=== PATIENT | female | born 1940 | race Caucasian/White ===

== ENCOUNTER 2017-04-10 13:20 | Outpatient (CLI) | payer MEDICARE, OTHER ==
--- NOTE | 2017-04-10 17:00 | MRI ---
MRI CERVICAL SPINE WITHOUT IV CONTRAST: 04/10/17 HISTORY: Cervical radiculopathy. Patient complains of left shoulder and arm pain with numbness and tingling i n the left arm down to the fingers. Symptoms have been present for six months. COMPARISON: Not available. FINDINGS: There is volume loss involving each visualized cerebellar hemisphere. Multilevel degenerative changes are seen in the cervical spine. There is partial fusion of the C4-5 vertebral bodies with fusion of the C5-6 as well as T1-2 vertebral bodies. C2-3 level: There is no disc bulge or disc herniation. Central spinal canal and neural foramina are patent. C3-4 level: There is mild loss of intervertebral disc height. There is a broad based disc osteophyte complex with prominent facet hypertrophic changes greater on the left. The findings result in moder ate to severe bilateral neural foraminal narrowing as well as moderate narrowing of the central spin al canal. C4-5 level: As mentioned above, there is partial fusion at this level, but there is posterior osteop hyte formation including probably uncinate process hypertrophy on the right. There is severe bilater al neural foraminal narrowing with mild narrowing of the central spinal canal. C5-6 level: There is posterior osteophyte formation which results in mild generalized narrowing of t he central spinal canal. There is narrowing of the ventral subarachnoid space with flattening of the anterior aspect of the spinal cord, but there is normal signal intensity in the spinal cord. Right neural foramen is patent, but there is mild uncinate process hypertrophy on the left resulting in mo derate left sided neural foraminal narrowing. C6-7 level: There are prominent end plate degenerative changes at this level. There is loss of inter vertebral disc height. There is a broad disc osteophyte complex with facet degenerative changes. The re is moderate narrowing of the central spinal canal as well as moderate bilateral neural foraminal narrowing. C7-T1 level: There is severe loss of intervertebral disc height. There is severe loss of interverteb ral disc height. There is mild broad based disc osteophyte complex which results in only slight effa cement of the ventral aspect of the thecal sac. There is moderate bilateral neural foraminal narrow ing, greater on the left. T1-2 level: There is posterior osteophyte formation at this level resulting in slight narrowing of t he ventral subarachnoid space as well as mild to moderate bilateral neural foraminal narrowing. T2-3 level: There is loss of intervertebral disc height. There is a mild broad based disc osteophyte complex with slightly larger central disc protrusion. This narrows the ventral subarachnoid space. There is mild to moderate right and moderate left sided neural foraminal narrowing. T3-4 level: There is mild broad based disc bulge. This narrows the ventral subarachnoid space. Neura l foramina are patent. IMPRESSION: 1. Multilevel degenerative changes in the cervical spine with levels of fusion involving the C4 -5, C5-6, and T1-2 levels. 2. Moderate to severe narrowing of the central spinal canal at the C3-4 level as well as modera te right and severe left sided neural foraminal narrowing related to posterior osteophyte formation and broad based disc bulge and facet hypertrophic changes. Additional levels of neural foraminal and central canal stenosis are also present as described above. POS: [facility]
== END 2017-04-10 13:21 | disposition home or self-care (01) ==
LOC: SCSMRI 13:20
PROVIDERS: ATTEND Neurological Surgery
DX: M47.23 Other spondylosis with radiculopathy, cervicothoracic region (principal); M48.02 Spinal stenosis, cervical region; M50.10 Cervical disc disorder with radiculopathy, unspecified cervical region
CPT/HCPCS: 72141

== ENCOUNTER → 2017-06-14 | Day surgery (SDC) | payer MEDICARE, OTHER ==
[2017-06-13 15:31] VITALS: BMI 31.3
[~2017-06-14] MED LIST: Acetaminophen/Codeine 30-300mg Tablet ONE; CEFAZOLIN/Water 2 GM/20 ML SYRINGE ONE; Dexamethasone 20 MG/5 ML VIAL ONE; Fentanyl 100 MCG/2 ML VIAL ONE; Fentanyl 250 MCG/5 ML VIAL ONE; Glycopyrrolate 0.2 MG/ML 5 ML SYRINGE ONE; Lidocaine 1% PF 5 ML VIAL ONE; Midazolam HCl 2 mg/2 ml Vial ONE; Naloxone HCl 0.4 mg/ml Vial ONE; Ondansetron HCl/PF 4 MG/2 ML Vial ONE; Promethazine HCl 25 MG/ML VIAL SLOW IVP PRN; Propofol 200 MG/20 ML VIAL ONE; Thrombin 5000 UNITS/5 ML VIAL ONE; ePHEDrine/0.9% NaCl/PF SYRINGE 50 mg/10 ml ONE
--- NOTE | 2017-06-14 08:58 | HP ---
HISTORY OF PRESENT ILLNESS: Ms. Vieyra is a very pleasant 77-year-old woman who presents for evalua tion of a severe left-sided C6 radiculopathy. She has had this now for at least 6-8 months now. Her pain is profound and has had no relief due to this left shoulder. She has had significant arthropat hy in the left side and had a reverse shoulder replacement. She has also had intraarticular injectio ns into the shoulder and none of it has given her any significant relief. She saw a neurologist rece jerson who performed an EMG, that felt like it was radiculopathy from her neck and a followup MRI that shows significant stenosis to the left at C5-6 matching her symptoms as well. PHYSICAL EXAMINATION: The patient is alert and oriented x3. She is in a wheelchair secondary to oth er disabling conditions. Her gait is unassessed. 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 She is mildly tender over the distribution of th e C6 nerve and has a positive Spurling's maneuver to the left. PAST MEDICAL HISTORY: Dementia, osteoarthritis, bronchitis, hyperlipidemia, chronic renal disease st age 3, hypothyroidism, chronic constipation, Crohn's disease, Charcot joint, atrial fibrillation, hea rt failure, open angle glaucoma, hypertension, history of CVA and peripheral vascular disease. CURRENT MEDICATIONS: Unlisted. ALLERGIES: ARICEPT, BACTRIM, CIPRO, MORPHINE and SULFA DRUGS. ASSESSMENT: Cervical radiculopathy. PLAN: Dr. Mcconnell met with the patient, reviewed imaging and ultimately advocated for C5-6 ACDF. He e xplained to the patient the risks, benefits, and alternatives to the procedure. The patient expresse d understanding and would like to move forward with surgery as discussed. I do believe the patient i s mentally competent and capable of making medical decisions for herself and we will move forward wit h surgery as planned.
[2017-06-14 11:03] LABS: #Basophils 0.1 thou/uL (0.0-0.2); #Eosinphils 0.5 thou/uL (0.0-0.7); #Lymphocytes 1.3 thou/uL (1.20-3.40); #Monocytes 0.8 thou/uL (0.11-0.59); #Neutrophils 5.6 thou/uL (1.40-6.50); %Basophils 0.7 % (0.0-1.0); %Eosinophils 5.6 % (0.0-10.0); %Lymphocytes 15.6 % (21.0-51.0); %Monocytes 9.8 % (0.0-10.0); Hematocrit 42.7 % (36.0-47.0); Mean Platelet Volume 9.6 fL (7.4-10.4); Red Blood Cell (RBC) Count 4.54 mill/uL (4.20-5.40); White Blood Cell (WBC) Count 8.2 thou/uL (4.8-10.8)
[2017-06-14 12:16] LABS: Anion Gap 13 mmol/L (10-20); BUN (Urea Nitrogen) 24 mg/dL (9.8-20.1); Calc. Creatinine Clearance 57 mL/min (70-130); Carbon Dioxide 25 mmol/L (23-31); Chloride 107 mmol/L (98-107); Estimated GFR-MDRD 53
--- NOTE | 2017-06-14 13:27 | OP ---
DATE OF PROCEDURE: 06/14/2017 SURGEON: Jose L Mcconnell M.D. MYSTERY SHOPPER: Zia Phelps PA-C INDICATION: Pain. DIAGNOSIS: Cervical radiculopathy. PROCEDURE: Anterior cervical discectomy and fusion at C6-7. ANESTHESIA: General. TECHNIQUE: The patient was brought into the operating room and placed under general anesthesia. She was placed on the table in supine position. A transverse incision was planned over the lateral aspe ct of the neck on the right. After prepping and draping and after appropriate operative pause, the i ncision was created. The underlying platysma muscle was identified and incised. A blunt tissue plan e anterior to the sternocleidomastoid muscle was used to gain access to the prevertebral space. Self -retaining retractors placed in the wound for optimal exposure. After confirming the appropriate lev el, an annulotomy was performed in the disk space and all disk material as well as anterior and poste rior osteophytes were removed. After complete decompression, a 6 mm lordotic PEEK cage packed with a llograft and autograft material was placed within the interbody space. An anterior cervical plate wa s then fashioned in front of the spine and secured with a total of 4 fixed screws. Midline and later al structures were inspected and found to be free from significant trauma. The wound was irrigated. Hemostasis was maintained throughout. The wound was then closed in anatomic layers and a pressure d ressing was applied. There were no known procedural complications.
--- NOTE | 2017-06-14 15:54 | EKG ---
Test Reason : PREOP Blood Pressure : / mmHG Vent. Rate : 078 BPM Atrial Rate : 064 BPM P-R Int : 000 ms QRS Dur : 086 ms QT Int : 400 ms P-R-T Axes : 000 -23 -08 degrees QTc Int : 456 ms Atrial fibrillation Anterior infarct , age undetermined cannot be excluded Abnormal ECG Confirmed by ITZ DUMONT ([id number]) on 06/14/2017 3:54:15 PM Referred By: CHANG Confirmed By:ITZ DUMONT
== END ==
LOC: SDC 09:38
PROVIDERS: ATTEND Neurological Surgery
PROC: 0RG10A0 Fusion of Cervical Vertebral Joint with Interbody Fusion Device, Anterior Approach, Anterior Column, Open Approach (ICD-10-PCS; principal; 2017-06-14)
PROC: 0RT30ZZ Resection of Cervical Vertebral Disc, Open Approach (ICD-10-PCS; 2017-06-14)
DX: M54.12 Radiculopathy, cervical region (principal); M19.90 Unspecified osteoarthritis, unspecified site; I50.9 Heart failure, unspecified; N18.3 Chronic kidney disease, stage 3 (moderate); I13.0 Hypertensive heart and chronic kidney disease with heart failure and stage 1 through stage 4 chronic kidney disease, or unspecified chronic kidney disease; F03.90 Unspecified dementia, unspecified severity, without behavioral disturbance, psychotic disturbance, mood disturbance, and anxiety; E78.5 Hyperlipidemia, unspecified; E03.9 Hypothyroidism, unspecified; K50.90 Crohn's disease, unspecified, without complications; K59.09 Other constipation; A52.16 Charcot's arthropathy (tabetic); I48.91 Unspecified atrial fibrillation; Z88.2 Allergy status to sulfonamides; Z88.5 Allergy status to narcotic agent; Z88.8 Allergy status to other drugs, medicaments and biological substances; Z86.73 Personal history of transient ischemic attack (TIA), and cerebral infarction without residual deficits; Z90.710 Acquired absence of both cervix and uterus; Z98.890 Other specified postprocedural states; Z99.3 Dependence on wheelchair; Z88.1 Allergy status to other antibiotic agents; Z79.899 Other long term (current) drug therapy
CPT/HCPCS: 20930; 20936; 22551; 22853; 76001; 80048; 85025; 93005; 96374; C1713; 36415; 93010; J1100; J2001; J2250; J2310; J2405; J2704; J3010

== ENCOUNTER 2018-03-21 08:34 | Outpatient (CLI) | payer MEDICARE ==
--- NOTE | 2018-03-21 12:06 | MRI ---
MRI CERVICAL SPINE PERFORMED WITH AND WITHOUT CONTRAST ENHANCEMENT: HISTORY: Cervical radiculopathy. Left shoulder and arm pain, numbness, and tingling, extending down left arm, to fingers. COMPARISON: A noncontrast MRI performed on 04/10/2017. FINDINGS: The patient has undergone an anterior cervical fusion at the C6-C7 level. There is a rudimentary di sk at C4-C5 and fusion at the C5-C6 level. A narrowed disk is seen at C7-T1, and bony fusion at the T1 and T2 levels. Motion artifact does degrade detail on this examination. Cord signal change is fe lt to be normal. C2-C3: Unremarkable. C3-C4: Disk and posterior osteophyte changes at this level are associated with a moderate degree of canal stenosis and bilateral foraminal narrowing. C4-C5: There is a partial fusion again noted at this level. The canal shows a mild degree of canal stenosis. There is fairly pronounced bilateral foraminal narrowing. C5-C6: Posterior osteophyte changes are seen at this level. There is mild narrowing to the left for amen. C6-C7: No central canal stenosis. There is mild foraminal narrowing, slightly greater on the left. C7-T1: No definite canal or foraminal stenosis. T1-T2: Unremarkable, other than a bony fusion. IMPRESSION: Areas of canal and foraminal stenosis, as discussed above. The most significant degree of canal sten osis appears to be at the C3-C4 level. POS: [facility]
[2018-03-21] MEDS ORDERED: Gadobenate Dimeglumine 529 MG/1 ML (20ML VIAL) ONE (14:56)
== END 2018-03-21 08:35 | disposition home or self-care (01) ==
LOC: TBSIIMAG 08:34
PROVIDERS: ATTEND Neurological Surgery
DX: M54.12 Radiculopathy, cervical region (principal); M48.02 Spinal stenosis, cervical region; M99.81 Other biomechanical lesions of cervical region
CPT/HCPCS: 72156; 82565; A9579

== ENCOUNTER 2018-06-23 14:04 | Inpatient (IN) | payer MEDICARE ==
[2018-06-23] MEDS ORDERED: Ondansetron ODT 8 MG TAB ONE (14:53)
[2018-06-23] MEDS ORDERED: Ondansetron PF 4 MG/2 ML Vial ONE (14:56)
[2018-06-23 15:14] LABS: #Eosinphils 0.1 thou/uL (0.0-0.7); #Lymphocytes 1.6 thou/uL (1.20-3.40); #Monocytes 1.1 thou/uL (0.11-0.59); #Neutrophils 6.7 thou/uL (1.40-6.50); %Basophils 0.1 % (0.0-1.0); %Eosinophils 0.9 % (0.0-10.0); %Lymphocytes 16.6 % (21.0-51.0); %Monocytes 11.4 % (0.0-10.0); %Neutrophils 71.1 % (42.0-75.0); Mean Corpuscular HGB CONC 32.4 g/dL (32.0-36.0); Mean Corpuscular Hemoglobin 30.3 pg (27.0-31.0); Mean Corpuscular Volume 93.5 fL (78.0-98.0); Mean Platelet Volume 8.7 fL (7.4-10.4); Platelet Count 214 thou/uL (130-400); RBC Distribution Width 13.4 % (11.5-14.5); Red Blood Cell (RBC) Count 4.97 mill/uL (4.20-5.40); White Blood Cell (WBC) Count 9.4 thou/uL (4.8-10.8)
[2018-06-23 15:29] LABS: ALT (SGPT) 10 U/L (8-55); AST (SGOT) 17 U/L (5-34); Albumin 3.6 g/dL (3.4-4.8); Alkaline Phosphatase 85 U/L (40-150); Anion Gap 17 mmol/L (10-20); BUN (Urea Nitrogen) 39 mg/dL (9.8-20.1); Bilirubin, Total 0.4 mg/dL (0.2-1.2); CK (CPK) 66 U/L (29-168); Calc. Creatinine Clearance 0 mL/min (70-130); Calcium 9.6 mg/dL (7.8-10.44); Carbon Dioxide 19 mmol/L (23-31); Chloride 108 mmol/L (98-107); Estimated GFR-MDRD 26; Globulin 3.7 g/dL (2.4-3.5); Glucose 101 mg/dL (83-110); Lipase 28 U/L (8-78); Potassium 3.2 mmol/L (3.5-5.1); Protein, Total 7.3 g/dL (6.0-8.3); Sodium 141 mmol/L (136-145)
[2018-06-23 15:33] LABS: CKMB 0.8 ng/mL (0-6.6)
[2018-06-23 16:21] LABS: Bilirubin Negative (Negative); Blood, Urine Large (Negative); Clarity TURBID (Clear); Glucose, Urine (Dipstick) Negative (Negative); Leukocyte Large (Negative); Nitrite Negative (Negative); Protein, Urine (Dipstick) 100 mg/dL (Neg-Trace); Specific Gravity, Urine 1.016 (1.002-1.036); Urobilinogen 0.2 mg/dL (0.2-1.0); pH, Urine 6.5 (5.0-9.0)
[2018-06-23 16:27] LABS: Bacteria/HPF 4+ HPF (None Seen); Hyaline Casts/LPF 4-6 HYALINE CAST LPF (0-3 Hyaline); Pathc Cast-AUWi Flag 1.61 (0-2.49); RBC/HPF GREATER THAN 50-TNTC HPF (0-3); Squamous Epithelial None Seen HPF (0-3)
--- NOTE | 2018-06-23 16:55 | CT ---
ABDOMEN CT WITHOUT CONTRAST PELVIC CT WITHOUT CONTRAST: History: Abdominal pain. Comparison: 12-01-15 Technique: Abdomen and pelvic CTs were performed without IV or oral contrast. Coronal reformatted efrem ges are submitted for interpretation. FINDINGS: Patchy interstitial and ground glass opacities involving the visualized lung bases. The heart is enla rged. No significant pericardial fluid. The descending thoracic aorta and abdominal aorta demonstrate atherosclerosis. No aneurysmal dilatation. Absent gallbladder. Limited evaluation of the solid organs due to lack of IV contrast. Grossly no solid organ abnormality . No gastrohepatic, retrocrural or periportal lymphadenopathy. There are nonobstructing punctate calcifications in the right kidney. There is a hypodensity in the r ight renal cortex measuring 1.7 cm with an attenuation coefficient of 21 Hounsfield units. The lesion is indeterminate. There is no evidence of right sided obstructive uropathy. There is a large Staghor n calculus involving the left intrarenal collecting system. There does appear to be dilatation of the upper pole intrarenal collecting system. The left ureter is moderately dilated. No evidence of obstr ucting calcifications. Limited evaluation of the mesentery due to motion and beam attenuation artifact. No mesenteric mass, lymphadenopathy, free air or free fluid. Small umbilical hernia containing mesenteric fat. Limited evaluation of the alimentary canal by the lack of oral contrast. There are mildly prominent proximal small bowel loops. The mid to distal small bowel loops are decomp ressed. A partial obstructive process cannot be entirely excluded. Anastomosis of the small bowel and colon is unremarkable. There does appear to be a right hemicolectomy. No evidence of colonic obstruc tion. CT PELVIS: Nonspecific air in the urinary bladder. Correlate for recent Atkins catheterization. If there is no hi story of recent catheterization, the possibility of infection cannot be excluded. Correlate with urin alysis. No pelvic mass, free air or free fluid. The uterus is surgically absent. There is diffuse bony demineralization. Extensive fusion changes of the lumbar spine. No definite fra cture. There is perihardware lucency involving the right screw at S1. IMPRESSION: 1. Large Staghorn calculus involving the left intrarenal collecting system with moderate dilatation o f the left upper pole. There is dilatation of the left ureter without associated obstructing calculus . 2. Air attenuation of the urinary bladder as described above. Correlate clinically. 3. Partial obstructive process cannot be excluded. 4. Results of study discussed with Dr. Craig 06-23-18 at 5:20 p.m. POS: [facility]
[2018-06-23] MEDS ORDERED: [UNRECOGNIZED DRUG - OTHER] IVPB PRN (18:15)
[2018-06-23 18:49] LABS: Actual Bicarbonate (HCO3a) 17.1 mEq/L (22-28); Analyzer IN Cardio ER; Base Excess (BEa) -8.9 mEq/L (-2.0 to +3.0); Calcium, Ionized 1.18 mmol/L (1.12-1.30); Carboxyhemoglobin (COHb) 0.7 gm% (0.0-3.0); Hemoglobin (Hb) 13.2 g/dL (12.0-16.0); O2 Tension (PaO2) 112.4 mmHg (> 70.0); Potassium - ABG Lab 3.22 mmol/L (3.70-5.30); pH, Arterial 7.28 (7.35-7.45)
[2018-06-23 18:50] LABS: Puncture Site RRA
[2018-06-23] MEDS: Sodium Chloride 0.9% 1,000 ML IV SCH (19:49)
[2018-06-23] MEDS ORDERED: Potassium Chloride 20 MEQ TAB PO SCH (20:15)
--- NOTE | 2018-06-23 20:33 | RAD ---
CHEST ONE VIEW: Comparison: 09-10-16 History: Shortness of breath. FINDINGS: Re-demonstration of dorsal column stimulator as well as additional wires projecting over the lower le ft hemithorax. Fusion hardware in the cervical and lumbar spine is noted. Heart is enlarged with pulmonary vascular prominence. No consolidation or mass. No pneumothorax. No a cute osseous abnormalities. IMPRESSION: Cardiomegaly without evidence of congestive heart failure. POS: [facility]
[2018-06-23] MEDS ORDERED: Meropenem 1 GM in Sodium Chloride 0.9% 100 ML IVPB SCH (21:00)
[2018-06-23] MEDS ORDERED: Famotidine/PF 20 mg/2ml Vial SLOW IVP SCH ×2 (21:00)
--- NOTE | 2018-06-23 21:22 | HP ---
CHIEF COMPLAINT: Nausea, vomiting, and diarrhea. HISTORY OF PRESENT ILLNESS: The patient is a very pleasant 78-year-old female, who resides in apparently an assisted living versus independent living, who presents to the hospital with hypotension. Based on the ER physician, I was notified that the patient was found to be hypotensive and was brought into the ER for further evaluation. Furthermore, when I spoke with the patient, she stated that she has been having nausea, vomiting, and diarrhea, which has been going on for the past 4 days. When I asked her that she notify anybody, she stated that she did not since she is able to wheel herself to the bathroom. She really did not tell anybody about the nausea, vomiting, or the diarrhea. Denies any recent antibiotic take. She denies any abdominal pain. She denies any fevers. PAST MEDICAL HISTORY: 1. She has a history of Crohn disease. 2. She has a history of atrial fibrillation. 3. She has a history of glaucoma. 4. She has a history of heart failure. 5. She has a history of coronary artery disease. 6. She has a history of reflux. PAST SURGICAL HISTORY: The patient stated that she has had a left shoulder and also had a hysterectomy and a cholecystectomy. ALLERGIES: SHE HAS GOT ALLERGY TO DONEPEZIL. SHE IS ALLERGIC TO MORPHINE, SULFA AND BACTRIM. MEDICATIONS: 1. She takes allopurinol 100 mg daily. 2. She takes Lasix 20 mg daily. 3. Norvasc 10 mg daily. 4. Lopressor 50 mg b.i.d. 5. Lyrica 100 mg daily. 6. She takes Tylenol No.3, 300 mg daily. 7. She takes Arginaid 4.5 g daily. REVIEW OF SYSTEMS: All negative except for the ones mentioned above in the HPI. FAMILY HISTORY: No history of any heart disease or stroke. SOCIAL HISTORY: She currently resides in [facility]. Denies any alcohol use or drug use. She stated that she is a [id number]. This is per the patient. PHYSICAL EXAMINATION: VITAL SIGNS: As of the following; her temperature of 98.6, heart rate of 100, and respirations 18. She was 99% on 2 L and blood pressure was 100/70. GENERAL: She is awake; however, appears to be mildly drowsy, easily arousable. CV: S1 and S2 present. No murmurs, rubs, or gallops. LUNGS: Clear to auscultation. No rhonchi or wheezes noted. ABDOMEN: Soft. Bowel sounds present x2. Mild pain upon palpation to bilateral right and left lower quadrant. EXTREMITIES: No edema. She does have significant mild erythema noted to her left foot compared to her right foot. Her left foot in comparison to her right foot also appears to be cool to touch and she does have small areas of unhealed wounds on her left toes. NEUROLOGIC: No focal deficits noted. She is able to move all extremities. SKIN: Again as I mentioned, she does have some decubitus per nursing staff, and she has 2 small healing ulcers noted to her toes. LABORATORY RESULTS: As of the following, her urine, she has a large leukocyte esterase, no squamous epithelial cells, and large wbc's. Chemistry; sodium of 141, potassium of 3.2, BUN of 39, and creatinine of 1.85. Her bicarb was 19. Her BNP is 156.6. Hematology; WBCs of 9.4, hemoglobin of 15.0, hematocrit of 46.5, and platelets of 214. She did have a CT of abdomen and pelvis without any contrast, which indicated partial small bowel obstruction. Also indicated a large staghorn calculus involving the left intrarenal collection system. There is no dilation of the left ureter without associated obstruction. ASSESSMENT AND PLAN: The patient is a very pleasant 78-year-old female, who presents to the hospital with complaints with hypotension. 1. Sepsis. I will start her on some broad-spectrum antibiotics given the fact that her microbiology in the past has indicated Proteus and E. coli. I will start her on some meropenem for now. Also, we will start her on some gentle IV hydration. She did get some IV hydration. We will continue that. 2. Urinary tract infection. Again, the antibiotics will cover and also Urology consult has been put in by the ER doctor for the staghorn calculi. 3. Non-anion gap metabolic acidosis. We will continue to monitor. 4. Acute kidney injury. Her baseline creatinine is 1.02 and today is 1.85. We will start her on some IV hydration. Continue to monitor. Most likely this is prerenal. 5. Hypokalemia. We will replace the potassium. 6. Deep venous thrombosis prophylaxis. We will put the patient on some sequential compression devices and also subcu Lovenox. Job ID: [id number]
[2018-06-23 21:31] LABS: Anion Gap 12 mmol/L (10-20); BUN (Urea Nitrogen) 35 mg/dL (9.8-20.1); Calc. Creatinine Clearance 39 mL/min (70-130); Calcium 8.5 mg/dL (7.8-10.44); Carbon Dioxide 19 mmol/L (23-31); Chloride 115 mmol/L (98-107); Estimated GFR-MDRD 35; Glucose 89 mg/dL (83-110); Magnesium 1.3 mg/dL (1.6-2.6); Phosphorus 3.2 mg/dL (2.3-4.7); Potassium 3.1 mmol/L (3.5-5.1); Sodium 143 mmol/L (136-145)
[2018-06-23] MEDS: Polyethylene Glycol OPTH DROP 15 ML BOT EA EYE SCH (21:44)
[2018-06-23] MEDS: MEROPENEM 1 GM/50 ML 1 GM in Premix Bag 1 BAG IVPB SCH (21:47)
[2018-06-24] MEDS: Acetaminophen 325 MG TAB PO PRN ×3 (00:53→17:05)
[2018-06-24] MEDS: Sodium Chloride 0.9% 1,000 ML IV SCH (06:24)
[2018-06-24 07:00] LABS: #Eosinphils 0.2 thou/uL (0.0-0.7); #Monocytes 0.7 thou/uL (0.11-0.59); #Neutrophils 4.1 thou/uL (1.40-6.50); %Basophils 0.3 % (0.0-1.0); %Eosinophils 3.5 % (0.0-10.0); %Lymphocytes 16.8 % (21.0-51.0); %Monocytes 12.1 % (0.0-10.0); %Neutrophils 67.3 % (42.0-75.0); Hemoglobin 12.1 g/dL (12.0-16.0); Mean Corpuscular HGB CONC 33.1 g/dL (32.0-36.0); Mean Corpuscular Hemoglobin 30.7 pg (27.0-31.0); Mean Corpuscular Volume 92.7 fL (78.0-98.0); Mean Platelet Volume 8.8 fL (7.4-10.4); Platelet Count 166 thou/uL (130-400); RBC Distribution Width 13.5 % (11.5-14.5); Red Blood Cell (RBC) Count 3.92 mill/uL (4.20-5.40); White Blood Cell (WBC) Count 6.1 thou/uL (4.8-10.8)
[2018-06-24 07:17] LABS: ALT (SGPT) 7 U/L (8-55); AST (SGOT) 15 U/L (5-34); Albumin 2.9 g/dL (3.4-4.8); Alkaline Phosphatase 64 U/L (40-150); Anion Gap 13 mmol/L (10-20); BUN (Urea Nitrogen) 29 mg/dL (9.8-20.1); Bilirubin, Total 0.3 mg/dL (0.2-1.2); Calc. Creatinine Clearance 48 mL/min (70-130); Calcium 8.4 mg/dL (7.8-10.44); Carbon Dioxide 16 mmol/L (23-31); Chloride 118 mmol/L (98-107); Estimated GFR-MDRD 43; Globulin 2.7 g/dL (2.4-3.5); Glucose 77 mg/dL (83-110); Potassium 3.5 mmol/L (3.5-5.1); Protein, Total 5.6 g/dL (6.0-8.3); Sodium 143 mmol/L (136-145)
[2018-06-24] MEDS: Enoxaparin Sodium 40 MG/0.4 ML SYRINGE SC SCH ×2 (08:51→08:52)
[2018-06-24] MEDS: Lactinex Tablet PO SCH (08:51)
[2018-06-24] MEDS: Polyethylene Glycol OPTH DROP 15 ML BOT EA EYE SCH ×2 (08:52→21:10)
[2018-06-24] MEDS: MEROPENEM 1 GM/50 ML 1 GM in Premix Bag 1 BAG IVPB SCH ×2 (08:52→21:09)
[2018-06-24] MEDS ORDERED: Lactated Ringer's 1,000 ML IV SCH (10:15)
[2018-06-24] MEDS ORDERED: Metoprolol Tartrate 25 MG TAB PO SCH (12:15)
[2018-06-24 12:58] LABS: INR-International Normal Ratio 1.4; Prothrombin Time 17.4 SEC (12.0-14.7)
[2018-06-24 12:59] LABS: PTT 36.9 SEC (22.9-36.1)
--- NOTE | 2018-06-24 15:03 | CON ---
DATE OF CONSULTATION: 06/24/2018 PRIMARY CARE DOCTOR: Dr. Do. HISTORY OF PRESENT ILLNESS: Ms. Vieyra is a pleasant 78-year-old female, followed by Dr. Do, who presented to Urology Clinic and was seen by Dr. Kee on January 2017 for history of gross hematuria, UTI. She subsequently no showed and has been disengaged from our clinic due to noncompliance to follow up. She is currently admitted, resides in [facility], states that she is immobile and wheelchair bound due to chronic back pain, as well as her decreased mobility due to chronic pain in her feet. She is on allopurinol, however, denies history of gout. However, she is a poor historian. She denies prior history of kidney stones, prior surgical intervention for recurrent kidney stones. She herself today denies recurrent UTI of concern. She does now complain of lower back pain, however, was admitted due to hypotension. Currently, with gentle IV fluids, her acute kidney injury, renal insufficiency has improved. She has no significant abdominal pain of concern. She was admitted for hypotension and history of nausea and diarrhea. Her stool cultures are negative. A CT without contrast was obtained by the emergency room demonstrating incidental left staghorn with punctate right renal lithiasis. Her presenting white count is 9.4, currently it is 6.1. With IV fluid hydration , her creatinine has improved from 1.8 to 1.2. Her baseline creatinine is variable from 1.7 to 0.8. She appears to be stable. Currently is on meropenem, which I agree with based on her previous urine culture. PAST MEDICAL HISTORY: Includes Crohn disease, history of atrial fibrillation, glaucoma, history of heart failure, coronary artery disease, reflux, Cardiology per patient is Dr. Griffith, questionable history of gout. PAST SURGICAL HISTORY: Laparotomy secondary to bowel adhesions per patient, left shoulder surgery, hysterectomy, cholecystectomy. ALLERGIES: DONEPEZIL, MORPHINE, SULFA, AND BACTRIM. CURRENT MEDICATIONS: Include allopurinol 100 mg one p.o. daily, Tylenol, vitamin D, Lovenox subcu DVT prophylaxis, melatonin, meropenem on admission, metoprolol 25 mg, pentoxifylline, pregabalin. REVIEW OF SYSTEMS: A 10-point review of systems as above, otherwise noncontributory. SOCIAL HISTORY: She is a resident of [facility]. She is a retired teacher nursery school. PHYSICAL EXAMINATION: VITAL SIGNS: Stable. She is afebrile 97.6, 89, 92, 118/79. She is voiding in her diapers. Denies sensation of incomplete void. GENERAL: The patient appears to be in no acute distress. HEENT: Unremarkable. HEART: Regular rate. LUNGS: Clear. ABDOMEN: Soft, obese. No rigidity. No rebound. Midline laparotomy incision with no hernia. : Atrophic vaginitis. No evidence of pelvic mass on bimanual exam. EXTREMITIES: No cyanosis, clubbing, or edema. However, she does have some lower extremity chronic weakness. There is some eschar of her large toe on the left. PERTINENT LABORATORY DATA: White count 6, hemoglobin 12, platelet 166. There is no significant shift of concern. Renal function, on admission creatinine was 1.8, currently 1.2. Baseline creatinine 1.7 to 0.8. Lactic acid is within normal limits. There is no uric acid result of record. UA demonstrates pH of 6.5, 100 protein, negative nitrites, large leukocytes, greater than 50 rbc's, greater than 50 wbc's, 4+ bacteria, no epithelial, this is a catheterized specimen. Culture demonstrates preliminary gram-negative rods. Stool cultures on this admission is negative. Prior urine culture from January of 2017 demonstrates E. coli pansensitive, Proteus demonstrating resistant to quinolones, however, sensitive to meropenem and Zosyn. CT with contrast November 2015. Hypodensity in the kidney measuring 1.98 cm, likely representing cyst. No gross evidence of renal calculi on CT of November of 2015. Stone protocol CT 06/23/2018: Nonobstructing punctate right renal calculi, right hypodense cyst 1.7 cm, Hounsfield unit 21, indeterminate. No evidence of right hydronephrosis. Per my review, near complete staghorn as it involves multiple calices, dilation of the upper pole, no evidence of obstructing ureteral calculi. Air in the bladder from recent catheterization. Mildly prominent proximal small bowel loops, cannot rule out partially obstructive process. IMPRESSION AND PLAN: Ms. Vieyra is a 78-year-old female with past medical history of: 1. Questionable gout. 2. History of intermittent hematuria with urinary tract infection, previously seen by Dr. Kee. 3. History of atrial fibrillation, congestive heart failure, followed by Dr. Griffith. 4. Current admission due to acute kidney injury, exacerbated by nausea, diarrhea. 5. Incidental left staghorn with upper pole hydronephrosis. 6. History of urinary tract infection. Current culture gram-negative nina. Previous culture as above consistent with staghorn. The patient currently is hemodynamically stable. I have reviewed with the patient regarding indications for percutaneous nephrostomy tube. I did discuss the case with Interventional Radiology, who would perform the nephrostomy tube tomorrow to the upper pole if possible, and antegrade nephroureteral stent for PCNL at a later date. Pending final culture and sensitivity, I would recommend Infectious Disease consultation as she will most likely require a PICC line. Stage PCNL will be performed at a later date in few weeks when the patient has improved in her strength and her deconditioned status. 7. l obtain uric acid level. Continue allopurinol. 8. Agree with meropenem for now. Await final culture repeat. Hold Lovenox for percutaneous nephrostomy tube tomorrow. DVT prophylaxis with bilateral Arelis Hdez. Job ID: [id number] [facility]
[2018-06-24 15:16] LABS: Anion Gap 15 mmol/L (10-20); BUN (Urea Nitrogen) 24 mg/dL (9.8-20.1); Calc. Creatinine Clearance 54 mL/min (70-130); Calcium 9.3 mg/dL (7.8-10.44); Carbon Dioxide 17 mmol/L (23-31); Chloride 117 mmol/L (98-107); Estimated GFR-MDRD 50; Glucose 71 mg/dL (83-110); Potassium 3.6 mmol/L (3.5-5.1); Sodium 145 mmol/L (136-145)
--- NOTE | 2018-06-24 15:27 | CON ---
DATE OF CONSULTATION: 06/24/2018 TYPE OF CONSULTATION: Surgical. CONSULTING PHYSICIAN: Divya Barton MD REASON FOR CONSULTATION: Possible small bowel obstruction. HISTORY OF PRESENT ILLNESS: The patient is a 78-year-old white female. She lives in a fdc in [place]. She presented to the hospital yesterday secondary to a recent history of nausea and vomiting. She underwent evaluation in the emergency room including a CT scan. The CT scan was felt to potentially be consistent with an early partial small bowel obstruction with some mild dilatation of small bowel loops. She was also recognized to have a large staghorn calculus of her left kidney. As the patient had been vomiting prior to her presentation, I was consulted for the possibility of a bowel obstruction. She does have a history of multiple operations. Laboratory evaluation at the time of her presentation revealed a normal white blood cell count of 9.4 with a normal differential and hemoglobin of 15.0. Her laboratory studies from today are essentially the same. Her chemistry profile revealed some electrolyte abnormalities. Her BUN and creatinine were slightly elevated and her magnesium level is low. Her liver function tests today are essentially normal, although her albumin level is a little bit low at 2.9. Her carbon dioxide level was low at 19 and is 16 today. Her urinalysis shows a large amount of leukocyte esterase with greater than 50 white blood cells and red blood cells. Her urine was turbid in color consistent with urinary tract infection. Finally, the patient today tells me that although she has not had a nasogastric tube that she has not vomited and she denies any abdominal pain. She has had at least two bowel movements today. She tells me she has never stopped having regular bowel function and/or diarrhea. PAST MEDICAL HISTORY: 1. Possible history of Crohn disease. 2. History of atrial fibrillation. 3. Hypertension. 4. Hyperlipidemia. 5. History of multiple urinary tract infections. PAST SURGICAL HISTORY: 1. Left shoulder surgery. 2. Hysterectomy. 3. Cholecystectomy. 4. Surgery, possibly an exploratory laparotomy, for a ruptured bowel. 5. History of gastrostomy tube in left upper abdomen. MEDICATIONS: Include; 1. Allopurinol. 2. Lasix. 3. Norvasc. 4. Lopressor. 5. Lyrica. 6. Tylenol No. 3 (for pain throughout her body.). ALLERGIES: DONEPEZIL, MORPHINE, AND SULFA. PERSONAL AND SOCIAL HISTORY: She is . She has 1 child. She lives in a fdc in [place]. Her primary care physician is Dr. Do. She smoked, but not for 40 years. She formally drink alcohol, but she cannot for a number of years. REVIEW OF SYSTEMS: She is unable to walk, but she can only transfer. FAMILY HISTORY: Noncontributory. PHYSICAL EXAMINATION: VITAL SIGNS: Temperature is 97.6, pulse 113, and blood pressure 118/79. GENERAL: She is a well-developed, well-nourished, pleasant, elderly white female, resting in bed. She is alert and oriented x3, and cooperative. HEAD, EYES, EARS, NOSE, AND THROAT: Unremarkable. NECK: Supple without mass or tenderness. LUNGS: Clear to auscultation. CARDIAC: Regular rate and rhythm. ABDOMEN: Soft. Bowel sounds are present and normoactive. There is no evidence of tympanitic bowel sounds. ASSESSMENT AND PLAN: The patient with no evidence of a small bowel obstruction. She has some mild bowel delicious dilatation that can occur for any number of reasons. Given that she has been having regular bowel movements, there is certainly no indication of obstructive phenomena. I would certainly recommend resuming her diet, initially with clear liquids and then advance it. I am not certain why she has been vomiting, but it certainly could be related to her urinary tract infection or any number of reasons. Should she develop further GI problems, I would be happy to see her, otherwise I will sign off. Job ID: [id number]
--- NOTE | 2018-06-24 20:32 | PDOC.PN ---
- Subjective Encounter Start Date: 06/24/18 Encounter Start Time: 10:00 Subjective: pt up in bed no complains - Objective Resuscitation Status - Order Detail: 06/23/18 18:15 Resuscitation Status Routine Resuscitation Status: DNAR: NO Resuscitation Discussed with: per pt Vital Signs & Weight: Vital Signs (12 hours) Temp Pulse Resp BP Pulse Ox 06/24/18 16:00 98.7 F 95 18 110/63 97 06/24/18 11:31 97.7 F 97 18 102/67 100 Weight Admit Weight 173 lb 6.4 oz Weight 173 lb 6.4 oz I&O: 06/23/18 06/24/18 06/25/18 06:59 06:59 06:59 Intake Total 950 560 Output Total 3 Balance 950 557 Result Diagrams: 06/24/18 06:33 06/24/18 14:49 Phys Exam - Physical Examination Neck: no nodes, no JVD, supple, full ROM Respiratory: no wheezing, no rales, no rhonchi, wheezing present, clear to auscultation bilateral Cardiovascular: RRR, no significant murmur, no rub, gallop, irregular Gastrointestinal: soft, non-tender, no distention, positive bowel sounds Dx/Plan (1) Sepsis Code(s): A41.9 - SEPSIS, UNSPECIFIED ORGANISM Status: Acute (2) UTI (urinary tract infection) Status: Acute (3) Small bowel obstruction Code(s): K56.609 - UNSP INTESTNL OBST, UNSP TO PARTIAL VERSUS COMPLETE OBST Status: Acute (4) Intractable nausea and vomiting Code(s): R11.2 - NAUSEA WITH VOMITING, UNSPECIFIED Status: Acute (5) Staghorn kidney stones Code(s): N20.0 - CALCULUS OF KIDNEY Status: Acute - Plan will conitnue broad spectrum abx -: ct scan indicated SBO pt is having diarrhea now -: urology consulted for staghorn stones -: stool studies ordered * . Review of Systems - Review of Systems Respiratory: negative: Cough, Dry, Shortness of Breath, Hemoptysis, SOB with Excertion, Pleuritic Pain, Sputum, Wheezing Cardiovascular: negative: chest pain, palpitations, orthopnea, paroxysmal nocturnal dyspnea, edema, light headedness, other Gastrointestinal: negative: Nausea, Vomiting, Abdominal Pain, Diarrhea, Constipation, Melena, Hematochezia, Other - Medications/Allergies Allergies/Adverse Reactions: Allergies Allergy/AdvReac Type Severity Reaction Status Date / Time donepezil HCl [From Aricept] Allergy Verified 06/13/17 15:30 morphine Allergy Verified 06/13/17 15:30 Sulfa (Sulfonamide Allergy Verified 06/13/17 15:30 Antibiotics) sulfamethoxazole Allergy Verified 06/13/17 15:30 [From Bactrim] trimethoprim [From Bactrim] Allergy Verified 06/13/17 15:30 Medications: Current Medications Acetaminophen (Tylenol) 650 mg PO Q4H PRN PRN Reason: Headache/Fever/Mild Pain (1-3) Last Admin: 06/24/18 17:05 Dose: 650 mg Acidophilus (Floranex) 1 tab PO DAILY [facility] Last Admin: 06/24/18 08:51 Dose: 1 tab Allopurinol (Zyloprim) 100 mg PO DAILY [facility] Atorvastatin Calcium (Lipitor) 10 mg PO HS [facility] Cholecalciferol (Vitamin D3) 4,000 units PO DAILY [facility] Famotidine (Pepcid) 20 mg PO DAILY [facility] Fentanyl (Sublimaze) 25 mcg SLOW IVP Q6HR PRN PRN Reason: Pain Meropenem 1 gm/ Device 50 mls @ 100 mls/hr IVPB Q12HR [facility] Last Admin: 06/24/18 08:52 Dose: 50 mls Lactated Ringer's (Lactated Ringer's) 1,000 mls @ 30 mls/hr IV .Q24H [facility] Melatonin (Melatonin) 9 mg PO HS [facility] Metoprolol Tartrate (Lopressor) 25 mg PO BID [facility] Miscellaneous Medication (Pharmacy To Dose) 1 each IVPB PRN PRN PRN Reason: Pharmacy to dose Ondansetron HCl (Zofran) 4 mg IVP Q6H PRN PRN Reason: Nausea/Vomiting Pentoxifylline (Trental) 400 mg PO TID [facility] Last Admin: 06/24/18 17:03 Dose: 400 mg Pregabalin (Lyrica) 100 mg PO BID [facility] Propylene Glycol (Systane Opth Drop 15ml Bot) 1 drop EA EYE BID [facility] Last Admin: 06/24/18 08:52 Dose: Not Given Sodium Chloride (Flush - Normal Saline) 10 ml IVF Q12HR [facility] Last Admin: 06/24/18 08:52 Dose: Not Given Sodium Chloride (Flush - Normal Saline) 10 ml IVF PRN PRN PRN Reason: Saline Flush Tizanidine HCl (Zanaflex) 2 mg PO TID PRN PRN Reason: Muscle Spasm Last Admin: 06/24/18 17:02 Dose: 2 mg
[2018-06-24] MEDS ORDERED: tiZANidine HCl 4 MG TAB PO PRN (21:00)
[2018-06-24] MEDS: Pregabalin 50 MG CAP PO SCH (21:10)
[2018-06-24] MEDS: Metoprolol Tartrate 25 MG TAB PO SCH (21:10)
[2018-06-24] MEDS: Atorvastatin Calcium 10 MG TAB PO SCH (21:11)
[2018-06-24] MEDS: Melatonin 3 MG TAB PO SCH (21:11)
[2018-06-25] MEDS: Lactated Ringer's 1,000 ML IV SCH ×2 (01:44→23:28)
[2018-06-25] MEDS: Metoprolol Tartrate 25 MG TAB PO SCH ×2 (05:32→20:41)
[2018-06-25 08:17] LABS: Anion Gap 12 mmol/L (10-20); BUN (Urea Nitrogen) 16 mg/dL (9.8-20.1); Calc. Creatinine Clearance 65 mL/min (70-130); Calcium 9.2 mg/dL (7.8-10.44); Carbon Dioxide 20 mmol/L (23-31); Chloride 114 mmol/L (98-107); Estimated GFR-MDRD 61; Glucose 78 mg/dL (83-110); Potassium 3.1 mmol/L (3.5-5.1); Sodium 143 mmol/L (136-145)
[2018-06-25] MEDS ORDERED: Midazolam HCl 2 mg/2 ml Vial ONE (09:02)
[2018-06-25] MEDS ORDERED: Fentanyl 100 MCG/2 ML VIAL ONE (09:03)
[2018-06-25] MEDS: Allopurinol 100 MG TAB PO SCH (09:13)
[2018-06-25] MEDS: Lactinex Tablet PO SCH (09:13)
[2018-06-25] MEDS: Famotidine 20 MG TAB PO SCH (09:13)
[2018-06-25] MEDS: Pregabalin 50 MG CAP PO SCH ×2 (09:14→20:42)
[2018-06-25] MEDS: Potassium Chloride 10 MEQ/100 ML PREMIX BAG IVPB SCH ×3 (09:15→12:11)
[2018-06-25] MEDS: Polyethylene Glycol OPTH DROP 15 ML BOT EA EYE SCH ×2 (09:15→20:46)
[2018-06-25] MEDS ORDERED: Sodium Chloride 0.9% 20 ML ONE (10:12)
--- NOTE | 2018-06-25 11:06 | PDOC.PN ---
- Subjective Encounter Start Date: 06/25/18 Encounter Start Time: 11:04 Patient seen and examined, states she's feeling better albeit not fully back to normal, no other issues or complaints. - Objective Resuscitation Status - Order Detail: 06/23/18 18:15 Resuscitation Status Routine Resuscitation Status: DNAR: NO Resuscitation Discussed with: per pt Vital Signs & Weight: Vital Signs (12 hours) Temp Pulse Resp BP Pulse Ox 06/25/18 07:42 98.2 F 90 18 124/76 99 Weight Admit Weight 173 lb 6.4 oz Weight 173 lb 6.4 oz I&O: 06/24/18 06/25/18 06/26/18 06:59 06:59 06:59 Intake Total 950 1010 Output Total 5 Balance 950 1005 Result Diagrams: 06/24/18 06:33 06/25/18 07:38 Phys Exam - Physical Examination Constitutional: NAD HEENT: PERRLA, moist MMs, sclera anicteric Neck: no nodes, no JVD, supple +coughing no respiratory distress Cardiovascular: no significant murmur, no rub, irregular Gastrointestinal: soft, non-tender, no distention Musculoskeletal: pulses present, edema present (trace) Dx/Plan (1) Sepsis Code(s): A41.9 - SEPSIS, UNSPECIFIED ORGANISM Status: Acute (2) UTI (urinary tract infection) Status: Acute (3) Gastroenteritis Code(s): K52.9 - NONINFECTIVE GASTROENTERITIS AND COLITIS, UNSPECIFIED Status : Acute (4) Afib Code(s): I48.91 - UNSPECIFIED ATRIAL FIBRILLATION Status: Chronic (5) HTN (hypertension) Code(s): I10 - ESSENTIAL (PRIMARY) HYPERTENSION Status: Chronic (6) PVD (peripheral vascular disease) Code(s): I73.9 - PERIPHERAL VASCULAR DISEASE, UNSPECIFIED Status: Chronic - Plan * cont current plan of care * if WBC continues to improve and patient's clinical condition improving, will plan for discharge in AM * case and plan d/w patient at length, she understood and agreed with this plan.
[2018-06-25] MEDS: Potassium Chloride 10 MEQ in Premix Bag 1 BAG IVPB SCH ×3 (12:34→15:00)
--- NOTE | 2018-06-25 13:32 | PRG ---
DATE OF SERVICE: 06/25/2018 SUBJECTIVE: The patient just back from Interventional Radiology, underwent left percutaneous nephroureteral tube placement. OBJECTIVE: VITAL SIGNS: Vital signs are stable. ABDOMEN: Soft, nontender, nondistended. Nephrostomy catheter is adequately secured, taped. I did replace the Atkins catheter for strict I's and O's and monitoring for possible hematuria component. Catheter placed without difficulty with clear jak cloudy urine. IMPRESSION AND PLAN: Ms. Vieyra is a 78-year-old female with past medical history; 1. Gout, coronary artery disease, atrial fibrillation, glaucoma, currently admitted with history of hypotension. Vital signs currently stable. 2. History of Proteus, escherichia coli urinary tract infection. Recent urine culture, escherichia coli pansenitive. CT demonstrating left staghorn calculus. Renal function improved with gentle hydration. Her creatinine today is 0.89. Admitting creatinine was 1.4. Her white count is stable. I did review the images with Dr. Escalante as he has concern regarding suboptimal placement of the nephroureteral stent. It is in the upper pole; however, in the infundibulum, which is suboptimal for percutaneous nephrolithotomy for treatment of the stone. Dr. Escalante agrees and is willing to provide a mid pole access likely on to allow the patient a day of rest. informed the patient the current access is not safe to proceed with percutaneous nephrolithotomy as itching versus infundibulum ; calyceal access is preferable. Although, she declined, she states that she will think about it. I did encourage the patient to consider replacement of nephrostomy tube in a safer approach to treat her staghorn calculus. It is my hope that she will allow us to do this on this admission . meropenem has been switched to Levaquin. I will place the patient back on meropenem until Infectious Disease has seen the patient. Her previous urine culture did demonstrate Proteus component. It is likely that she has polymicrobial urinary tract infection given history of staghorn calculi. If patient agrees, she will go down for a percutaneous nephroureteral stent in the mid pole approach as upper pole could not be placed on . She may resume her diet today. Job ID: [id number] [facility]
[2018-06-25] MEDS ORDERED: Meropenem 2 GM in Sodium Chloride 0.9% 100 ML IVPB SCH (14:00)
[2018-06-25] MEDS ORDERED: Meropenem 2 GM in Admixture Fee 1 EACH IVPB SCH (14:00)
--- NOTE | 2018-06-25 14:19 | SPC ---
LEFT ANTEGRADE PYELOGRAM LEFT NEPHROURETERAL CATHETER PLACEMENT: DATE: 06/25/2018. HISTORY: Staghorn left renal calculus with dilatation of the superior pole left renal collecting system. Plac ement of a left nephroureteral catheter via the superior pole collecting system was requested prior t o PCNL. TECHNIQUE: The procedure including risks and complications were explained to the patient and informed consent wa s obtained. The patient was placed on the angiography table in the prone position. Limited ultrasou nd of the left kidney was performed. An area just above the 12th rib was marked, and the area was me ticulously prepped and draped in the usual sterile fashion. The skin and subcutaneous tissues were i nfiltrated with buffered 1% Lidocaine for local anesthesia. Conscious sedation was performed with th e intravenous administration of Fentanyl and Versed. The collecting system was accessed utilizing a micropuncture needle. There was return of slightly cloudy urine. Contrast injection was performed w hich demonstrated filling of the dilated superior pole left renal collecting system. However, prior to placement of a wire, the patient's oxygen saturations were decreased likely related to positioning . As a result, the needle was removed, and the patient was placed on her hospital bed with improveme nt in oxygen saturation. The patient was briefly monitored for approximately 10-15 minutes, and the patient was then again placed in the prone position. The left flank was again meticulously prepped a nd draped in the usual sterile fashion. The skin and subcutaneous tissues were infiltrated with buffered 1% Lidocaine for local anesthesia at the intended puncture site. Utilizing concurrent real-time ultrasound guidance, the superior pole d ilated left renal collecting system was accessed. Contrast injection was performed. The needle was then exchanged over a 0.018 inch guidewire for a 5 Kyrgyz introducer sheath. Attempts at manipulatin g a glidewire distal to the staghorn calculus were unsuccessful. As a result, the introducer sheath w as exchanged over a 0.035 inch glidewire for a 5 [place]z Berenstein catheter. The Berenstein catheter and glidewire were manipulated into the ureter distal to the staghorn calculus within the renal pelv is. The Berenstein catheter was then exchanged over the glidewire for a straight flush catheter. Co ntrast injection confirms placement in the ureter. However, the final image was obtained, and althou gh initial puncture appeared to be within the dilated collecting system, the actual puncture site patsy eared to be more in the infundibulum. This finding was discussed with Dr. Key. The catheter was capped and placed to gravity drainage and sutured in place utilizing 2-0 Ethilon suture material . A dry sterile dressing was placed. The patient tolerated the procedure well and without immediate co mplication. The patient was transported to her hospital room in stable condition. The patient's vit al signs remained stable during the procedure well as post procedure. FINDINGS: Large staghorn left renal calculus with dilated superior pole left renal collecting system. A left n ephroureteral catheter was successfully placed with tip positioned in the distal ureter. Initial acc ess by ultrasound did appear to be within superior pole posterior renal calyx, but final image sugges ts that the puncture site may actually be in the region of the infundibulum. However, the catheter w as not removed at this time, and findings were discussed with Dr. Grier. A 2nd access will be obtained at level of a more inferior pole of left renal collecting system in a couple of days for mor e adequate access for a percutaneous nephrostolithotomy procedure. More superior access within the s uperior pole collecting system was unable to be performed due to overlying rib. IMPRESSION: Technically successful left nephroureteral catheter placement with a 5 Kyrgyz angiographic straight f lush catheter placed serving as a nephroureteral catheter. This will likely facilitate drainage of t he dilated superior pole collecting system at this time. A 2nd access site within a more inferior po le calyx will be performed in a couple of days. Findings were discussed with Dr. Grier. CODE CR POS: LISA
--- NOTE | 2018-06-25 14:43 | ULT ---
LIMITED ULTRASOUND LEFT KIDNEY FOR ACCESS: DATE: 06/25/2018. HISTORY: Patient with a staghorn left renal calculus with obstructed superior pole left renal collecting syste m. FINDINGS/IMPRESSION: Limited sonographic evaluation was performed demonstrating dilatation of the superior pole left renal calyx. Ultrasound guidance was utilized for access of the left renal collecting system. The remain paty of this study will be dictated as a separate report concerning placement of the left nephroureter al catheter, and please see that exam for further details. POS: HEATHER
[2018-06-25] MEDS: Benzonatate 100 MG CAP PO PRN (14:59)
[2018-06-25] MEDS ORDERED: Ketorolac Tromethamine 30 MG/ML VIAL IVP SCH (15:15)
--- NOTE | 2018-06-25 17:58 | CON ---
DATE OF CONSULTATION: 06/25/2018 REASON FOR CONSULTATION: Urosepsis with obstruction. HISTORY OF PRESENT ILLNESS: A 78-year-old, who has a history of Crohn disease previously in remission, brought in because of nausea, vomiting, and diarrhea. She did not have any dysuria, but she did have abdominal pain associated with the symptoms above. The symptoms have been present for about 4 days before admission. She lives by herself in an assisted living setting and on arrival, temperature was 98.6, heart rate 100, respiratory rate 18, O2 saturation 99%, and BP 100/70, little bit drowsy on arrival. The overall exam with pain in the right and left lower quadrants which was mild. There is some erythema in the left foot. The neuro examination is nonfocal. Initial lab data; white cell count 9.4, hemoglobin 15, platelets 214 with 71% neutrophils. INR 1.4. pH 7.28, pCO2 37, pO2 112. Creatinine was 1.85. Liver profile was normal. Albumin 3.6, lipase 28. Urinalysis with greater than 50 wbc's. Microbiology with very broadly sensitive E coli identified. She had a C diff stool toxin negative and Campylobacter assay was negative. The patient had an abdomen and pelvis CT scan performed on admission. This showed a large staghorn calculus involving the left intrarenal collecting system with moderate dilatation of the left ureter. The patient has been given meropenem. The organism has been fully identified and susceptibility tested as a broadly susceptible strain of E coli. PHYSICAL EXAMINATION: GENERAL: Currently, Ms. Vieyra is awake. She is oriented. Denies any headaches. No shortness of breath or chest pain. She has moderate pain in the abdominal area, somewhat diffuse. She is voiding in the diaper and has a peripheral IV access. HEENT: The ocular movements are conjugate. Oral cavity with still quite a few teeth in place. The mouth is quite dry. NECK: Supple. No jugular venous distention. LUNGS: Symmetric. Clear breath sounds. HEART: S1, S2. Regular rate without murmurs. No S3, S4. ABDOMEN: Diffusely tender, but not distended. Bowel sounds are diminished. Bladder is not distended. EXTREMITIES: She is able to move her extremities, but lower extremities have a lot of arthrosis, osteoarthrosis mostly. She has difficulty in mobilizing them because of pain mostly. NEUROLOGIC: She is alert and oriented. She knew she was in [facility] and could give me the date as well. FOLLOWUP LABS: White cell count 6.1, hemoglobin 12, and platelets 166. Sodium 143, creatinine 1.2, which is improved from admission. Liver profile normal. Albumin 2.9. ASSESSMENT: 1. Coronary artery disease. 2. History of Crohn disease in remission. 3. Hyperuricemia, on allopurinol. 4. Nausea, vomiting, diarrhea, and diffuse abdominal tenderness. 5. Staghorn calculus of the left kidney with obstruction. 6. Escherichia coli, positive urine cultures with a broad susceptibility profile and abnormal urinalysis. DISCUSSION: Differential diagnosis includes an invasive UTI with pyelonephritis. There has been improvement with antimicrobial therapy administration, which makes this the more likely scenario. Other possibilities would include reactivation of her Crohn disease, which had not been on treatment. Her hyperuricemia could be related to Crohn disease that could be also associated with uric acid stone formation. We will switch her to Rocephin. PICC line placement, and treat for protracted periods of time. The patient will need staged removal of the stone and Dr. Key is going to likely plan this procedure in the next few weeks. One could consider an oral quinolone, although, lately, the detention use of quinolones has been fraught with a number of warnings regarding heart, tendons, joints, and altered mental status , so I am stay away from quinolones for this patient in view of the duration of therapy required. Job ID: [id number] [facility]TD[facility]
[2018-06-25] MEDS: cefTRIAXone\\ROCEPHIN 2 GM in Sodium Chloride 0.9% 100 ML IVPB SCH (18:00)
[2018-06-25] MEDS: Atorvastatin Calcium 10 MG TAB PO SCH (20:40)
[2018-06-25] MEDS: Melatonin 3 MG TAB PO SCH (20:41)
[2018-06-26 07:05] LABS: #Basophils 0.1 thou/uL (0.0-0.2); #Eosinphils 0.1 thou/uL (0.0-0.7); #Lymphocytes 0.4 thou/uL (1.20-3.40); #Monocytes 0.9 thou/uL (0.11-0.59); %Basophils 1.1 % (0.0-1.0); %Eosinophils 0.5 % (0.0-10.0); %Lymphocytes 2.9 % (21.0-51.0); %Monocytes 6.4 % (0.0-10.0); %Neutrophils 89.1 % (42.0-75.0); Hemoglobin 13.5 g/dL (12.0-16.0); Mean Corpuscular HGB CONC 33.1 g/dL (32.0-36.0); Mean Corpuscular Hemoglobin 30.1 pg (27.0-31.0); Mean Corpuscular Volume 90.8 fL (78.0-98.0); Mean Platelet Volume 8.9 fL (7.4-10.4); Platelet Count 173 thou/uL (130-400); RBC Distribution Width 13.6 % (11.5-14.5); Red Blood Cell (RBC) Count 4.49 mill/uL (4.20-5.40); White Blood Cell (WBC) Count 13.4 thou/uL (4.8-10.8)
[2018-06-26 07:33] LABS: Anion Gap 11 mmol/L (10-20); BUN (Urea Nitrogen) 11 mg/dL (9.8-20.1); Calc. Creatinine Clearance 64 mL/min (70-130); Calcium 9.5 mg/dL (7.8-10.44); Carbon Dioxide 23 mmol/L (23-31); Chloride 114 mmol/L (98-107); Estimated GFR-MDRD 61; Glucose 143 mg/dL (83-110); Sodium 145 mmol/L (136-145)
--- NOTE | 2018-06-26 07:43 | PRG ---
DATE OF SERVICE: 06/26/2018 SUBJECTIVE: The patient is sleeping, arousable. Vital signs are stable, temperature 99.1, pulse 109, respiratory rate 16, oxygen saturation 97, blood pressure 120/77. I's and O's 250 of urine output, jak, concentrated with no gross evidence of hematuria. PERTINENT LABORATORY DATA: White count 13, hemoglobin stable at 13.5, and platelets 173. Creatinine 0.89 and sodium 143. Stool culture demonstrating positive for Cryptosporidium antigen. IMPRESSION AND PLAN: A 78-year-old female with history of, 1. Gout. 2. Coronary artery disease. 3. Atrial fibrillation. 4. Glaucoma. 5. History of Proteus Escherichia coli urinary tract infection in the remote past. Recent urine culture, Escherichia coli, pansensitive on Rocephin by Infectious Disease. 6. CT demonstrating left staghorn, renal function improved with hydration. 7. Stool culture with history of diarrhea demonstrating Cryptosporidium antigen, currently in isolation, Infectious Disease is following. I am not sure if Dr. Escobedo is aware of this matter. Recommend his input. She is on a regular diet today. Unfortunately, the left percutaneous nephroureteral tube is in a suboptimal position. She is scheduled for replacement of her left nephroureteral stent tomorrow by Interventional Radiology. No anticoagulation due to ongoing nephrostomy tube exchange, continue antibiotics per Infectious Disease. NPO after midnight. Job ID: [id number] MTDD
[2018-06-26] MEDS: Pregabalin 50 MG CAP PO SCH ×2 (08:27→20:49)
[2018-06-26] MEDS: Allopurinol 100 MG TAB PO SCH (08:27)
[2018-06-26] MEDS: Metoprolol Tartrate 25 MG TAB PO SCH ×2 (08:27→20:50)
[2018-06-26] MEDS: Lactinex Tablet PO SCH (08:27)
[2018-06-26] MEDS: Polyethylene Glycol OPTH DROP 15 ML BOT EA EYE SCH ×2 (08:28→20:51)
[2018-06-26] MEDS: Benzonatate 100 MG CAP PO PRN (08:36)
[2018-06-26] MEDS: Famotidine 20 MG TAB PO SCH (08:36)
[2018-06-26] MEDS: Ondansetron PF 4 MG/2 ML Vial IVP PRN ×2 (10:47→20:56)
--- NOTE | 2018-06-26 13:32 | PDOC.PN ---
- Subjective Encounter Start Date: 06/26/18 Encounter Start Time: 13:30 Patient seen and examined, no new issues or complaints - Objective Resuscitation Status - Order Detail: 06/25/18 16:53 Resuscitation Status Routine Resuscitation Status: FULL: Full Resuscitation Discussed with: Dr. Villalobos and pt's daughter Tierra Faye Vital Signs & Weight: Vital Signs (12 hours) Temp Pulse Resp BP Pulse Ox 06/26/18 11:17 99.0 F 99 22 H 111/69 94 L 06/26/18 08:25 92 06/26/18 08:19 94 L 06/26/18 07:56 100.2 F H 22 H 119/78 94 L Weight Admit Weight 173 lb 6.4 oz Weight 173 lb 6.4 oz I&O: 06/25/18 06/26/18 06/27/18 06:59 06:59 06:59 Intake Total 1010 1010 Output Total 5 1000 Balance 1005 10 Result Diagrams: 06/26/18 06:50 06/26/18 06:50 Phys Exam - Physical Examination Constitutional: NAD HEENT: PERRLA, moist MMs, sclera anicteric Neck: no nodes, no JVD, supple, full ROM Respiratory: no wheezing, no rales, no rhonchi Cardiovascular: RRR, no significant murmur, no rub Gastrointestinal: soft, non-tender, no distention, positive bowel sounds Musculoskeletal: pulses present, edema present (trace) Dx/Plan (1) Sepsis Code(s): A41.9 - SEPSIS, UNSPECIFIED ORGANISM Status: Acute (2) UTI (urinary tract infection) Status: Acute (3) Gastroenteritis Code(s): K52.9 - NONINFECTIVE GASTROENTERITIS AND COLITIS, UNSPECIFIED Status : Acute (4) Afib Code(s): I48.91 - UNSPECIFIED ATRIAL FIBRILLATION Status: Chronic (5) HTN (hypertension) Code(s): I10 - ESSENTIAL (PRIMARY) HYPERTENSION Status: Chronic (6) PVD (peripheral vascular disease) Code(s): I73.9 - PERIPHERAL VASCULAR DISEASE, UNSPECIFIED Status: Chronic - Plan * PICC placement, cont rocephin for 4 weeks * will await ID and urological clearance prior to discahrge * likely DC in 24-48hrs
--- NOTE | 2018-06-26 16:49 | PRG ---
DATE OF SERVICE: 06/26/2018 SUBJECTIVE: Not very active and not as responsive as she was yesterday. Seems to be grimacing and pointing to her left lateral lower chest wall area with pain. OBJECTIVE: VITAL SIGNS: The patient has a T-max of 100.2 on June 26. Blood pressure 130/70, pulse 105, respirations 20, and O2 saturation 92%. GENERAL: Grimacing during the exam from pain and tenderness left lateral anterior chest wall area around the rib cage. HEENT: Ocular movements conjugate. LUNGS: Symmetric air entry. No obvious crackles or wheezing. HEART: S1 and S2. Regular rate. Tenderness in the left lower anterior chest wall. ABDOMEN: Soft, not distended. Atkins catheter in place with small amount of bloody urine in the bag. LABORATORY DATA: White cell count of 13.4, hemoglobin 13.5, and platelets 173. Creatinine is down to 0.9. Sodium 145, and potassium 3.0. ASSESSMENT: Coronary artery disease; Crohn disease, in remission; hyperuricemia ; nausea, vomiting, diarrhea, and diffuse abdominal tenderness; staghorn calculus, left kidney with obstruction; Escherichia coli; positive urine cultures; abnormal urinalysis; and now pain in the left anterior costal area. The patient may have complication related to her hospital stay. In reference to her chest wall region, we will order a chest x-ray, portable study. Job ID: [id number] MTDD
[2018-06-26] MEDS: cefTRIAXone\\ROCEPHIN 2 GM in Sodium Chloride 0.9% 100 ML IVPB SCH (16:53)
--- NOTE | 2018-06-26 19:18 | RAD ---
PORTABLE UPRIGHT FRONTAL CHEST RADIOGRAPH 06/26/18 COMPARISON: 12/02/15 HISTORY: Chest pain. FINDINGS: Dorsal column stimulators overlie the mid thoracic spine. Fusion hardware overlies the imaged upper lumbar spine and the cervicothoracic junction. Postoperativ e anchors overlie the right humeral head and there is a left shoulder arthroplasty. There is pulmonary vascular congestion and perihilar interstitial prominence. Hazy increased density in the left base noted, similar when compared to the prior exam. Increased linear density in the righ t upper lobe seen laterally. IMPRESSION: 1. Increased interstitial density and pulmonary vascular congestion may signify mild interstitia l edema in the proper clinical setting. 2. Hazy increased density in the left base may signify infectious pneumonitis/aspiration or volu me loss. PA and lateral chest imaging suggested for further assessment. POS: HEATHER
--- NOTE | 2018-06-26 20:28 | PDOC.EVN ---
Event Note - Event Note Event Note: Called to see patient for elevated heart rate. Patient with Afib and intermittent RVR with fever during her hospitalization, but significantly elevated in 130s this evening. Patient has also had a progressive cough and her O2 sats have dropped mildly during her hospitalization. Dr. Escobedo ordered a CXR which show some possible mild edema/infiltrate. BNP was elevated on admit, but was given fluids due to sepsis and renal insufficiency that has resolved. Patient weak and with wet sounding cough on exam that has developed since admit. On Rocephin already. Will stop fluids, give dose of Cardizem, transfer to telemetry. Will need cardiology to see in the AM. Will expand antibiotics to cover Health Care Associated Pneumonia- Cefepime and Levaquin. If patient still sounds wet after control of HR with cardizen, she may benefit from a dose of Lasix as well.
[2018-06-26] MEDS: Atorvastatin Calcium 10 MG TAB PO SCH (20:50)
[2018-06-26] MEDS: Melatonin 3 MG TAB PO SCH (22:27)
[2018-06-26] MEDS: Cefepime 2 GM in Sodium Chloride 0.9% 100 ML IVPB SCH (23:10)
[2018-06-27] MEDS: Diltiazem HCl 125 MG, Admixture Fee 1 EACH in Sodium Chloride 0.9% 100 ML IVPB SCH ×2 (00:46→11:41)
[2018-06-27] MEDS ORDERED: Digoxin 0.5 MG/2 ML AMP SLOW IVP SCH (03:00)
[2018-06-27] MEDS: Acetaminophen 325 MG TAB PO PRN (03:25)
[2018-06-27 06:01] LABS: #Basophils 0.1 thou/uL (0.0-0.2); #Lymphocytes 0.4 thou/uL (1.20-3.40); #Monocytes 0.8 thou/uL (0.11-0.59); #Neutrophils 12.1 thou/uL (1.40-6.50); %Basophils 0.9 % (0.0-1.0); %Eosinophils 0.3 % (0.0-10.0); %Lymphocytes 2.8 % (21.0-51.0); %Monocytes 6.1 % (0.0-10.0); %Neutrophils 89.8 % (42.0-75.0); Hemoglobin 14.5 g/dL (12.0-16.0); Mean Corpuscular HGB CONC 33.6 g/dL (32.0-36.0); Mean Corpuscular Volume 92.1 fL (78.0-98.0); Mean Platelet Volume 9.6 fL (7.4-10.4); Platelet Count 160 thou/uL (130-400); RBC Distribution Width 13.9 % (11.5-14.5); Red Blood Cell (RBC) Count 4.67 mill/uL (4.20-5.40); White Blood Cell (WBC) Count 13.5 thou/uL (4.8-10.8)
[2018-06-27 06:17] LABS: Anion Gap 17 mmol/L (10-20); BUN (Urea Nitrogen) 12 mg/dL (9.8-20.1); Calc. Creatinine Clearance 59 mL/min (70-130); Calcium 9.8 mg/dL (7.8-10.44); Carbon Dioxide 23 mmol/L (23-31); Chloride 112 mmol/L (98-107); Estimated GFR-MDRD 56; Glucose 112 mg/dL (83-110); Sodium 149 mmol/L (136-145)
[2018-06-27 06:22] LABS: Potassium 2.8 mmol/L (3.5-5.1)
--- NOTE | 2018-06-27 08:24 | PRG ---
DATE OF SERVICE: 06/27/2018 SUBJECTIVE: The patient continues to have vigorous cough. OBJECTIVE: VITAL SIGNS: Stable. Temperature 97, heart rate in the 1 teens, respirations 21, 97% on room air. I's and O's, 1010 in, 1000 out. Sedimentous urine. ABDOMEN: Soft. No rigidity. No rebound. PERTINENT LABORATORY DATA: White count today is 13, hemoglobin 14, platelets 160. Creatinine today 0.9. X-RAY STUDIES: Chest x-ray ordered by Dr. Escobedo demonstrating no acute pathology of concern. IMPRESSION/PLAN: 1. Ms. Vieyra is a 78-year-old female with history of Escherichia coli urinary tract infection, remote history of Escherichia coli Proteus. 2. History of gout. 3. History of coronary artery disease. 4. History of atrial fibrillation. 5. Glaucoma. 6. CT on this admission demonstrating a left near complete partial staghorn. She had an upper pole infundibular access, which is suboptimal for PCNL at a later date. Her cough may be exacerbated by her tubing to close to the rib. I will discuss this with Dr. Escalante. She is scheduled for her nephroureteral stent exchange today as it is a suboptimal access. As she has been transitioned to telemetry, I will discuss with primary care if it is still clear for the patient to proceed with Interventional Radiology under sedation. Job ID: [id number] MTDD
[2018-06-27] MEDS: Potassium Chloride 20 MEQ in Premix Bag 1 BAG IVPB SCH ×2 (09:00→10:22)
[2018-06-27] MEDS: Allopurinol 100 MG TAB PO SCH (09:01)
[2018-06-27] MEDS: Famotidine 20 MG TAB PO SCH (09:02)
[2018-06-27] MEDS: Metoprolol Tartrate 25 MG TAB PO SCH ×2 (09:02→22:06)
[2018-06-27] MEDS: Lactinex Tablet PO SCH (09:02)
[2018-06-27] MEDS: Pregabalin 50 MG CAP PO SCH ×2 (09:02→22:05)
[2018-06-27] MEDS: Cefepime 2 GM in Sodium Chloride 0.9% 100 ML IVPB SCH ×2 (09:03→22:02)
[2018-06-27] MEDS: Polyethylene Glycol OPTH DROP 15 ML BOT EA EYE SCH ×2 (09:03→22:07)
[2018-06-27] MEDS ORDERED: Sodium Bicarbonate 2.5 MEQ/5 ML VIAL ONE (12:56)
--- NOTE | 2018-06-27 13:59 | PDOC.PN ---
- Subjective Encounter Start Date: 06/27/18 Encounter Start Time: 13:58 Patient seen and examined, states she feels ok, no new issues or complaints. No family at bedside. - Objective Resuscitation Status - Order Detail: 06/25/18 16:53 Resuscitation Status Routine Resuscitation Status: FULL: Full Resuscitation Discussed with: Dr. Villalobos and pt's daughter Tierra Faye Vital Signs & Weight: Vital Signs (12 hours) Temp Pulse Resp BP Pulse Ox 06/27/18 12:04 99.3 F 88 20 132/64 95 06/27/18 07:53 98.8 F 121 H 20 139/67 94 L 06/27/18 04:00 99.4 F 125 H 21 H 154/71 H 92 L 06/27/18 03:07 130 H Weight Admit Weight 173 lb 6.4 oz Weight 159 lb 4.8 oz I&O: 06/26/18 06/27/18 06/28/18 06:59 06:59 06:59 Intake Total 1010 1030 Output Total 1000 800 Balance 10 230 Result Diagrams: 06/27/18 04:38 06/27/18 04:38 Phys Exam - Physical Examination Constitutional: NAD HEENT: PERRLA, moist MMs, sclera anicteric Neck: no nodes, no JVD, supple corse breath sounds no respiratory distress Cardiovascular: no significant murmur, irregular Gastrointestinal: soft, non-tender, no distention Musculoskeletal: pulses present, edema present (trace) Dx/Plan (1) Sepsis Code(s): A41.9 - SEPSIS, UNSPECIFIED ORGANISM Status: Acute (2) UTI (urinary tract infection) Status: Acute (3) Gastroenteritis Code(s): K52.9 - NONINFECTIVE GASTROENTERITIS AND COLITIS, UNSPECIFIED Status : Acute (4) Afib Code(s): I48.91 - UNSPECIFIED ATRIAL FIBRILLATION Status: Chronic (5) HTN (hypertension) Code(s): I10 - ESSENTIAL (PRIMARY) HYPERTENSION Status: Chronic (6) PVD (peripheral vascular disease) Code(s): I73.9 - PERIPHERAL VASCULAR DISEASE, UNSPECIFIED Status: Chronic - Plan * afib on cardizem, cardio consulted * nephrostomy tube will need to be readjusted as it maybe pushing on her ribs causing cough, case d/w urology this AM, will readjust tube once cardio clears the patient, anticoagulation to be started 24-48hrs post tube placement * continue current plan otherwise without any changes * case and plan d/w patient and her daughter(via phone) at [facility] they understand and agree with this plan.
--- NOTE | 2018-06-27 17:13 | SPC ---
ANTEGRADE LEFT PYELOGRAM: LEFT NEPHROSTOGRAM WITH ATTEMPTED LEFT NEPHROURETERAL CATHETER PLACEMENT: HISTORY: Left staghorn renal calculus. The superior pole calyx was accessed on the prior study but access was actually at the level of the i nfundibulum, which is inadequate access for PCNL. As a result, a second access was requested. FLUOROSCOPY: Total fluoroscopy time 11.9 minutes with a total dose of 41,464 mGy per cm2. TECHNIQUE: The procedure, including the risks and complications, were explained to the patient and informed cons ent was obtained. The patient was placed on the angiography table in the supine position. The indwe lling left nephroureteral catheter and surrounding area were meticulously prepped and draped in the u suok sterile fashion. Contrast was injected through the nephroureteral catheter, to opacify the patrick ecting system. Access through a calyx in the mid portion of the left kidney was obtained. However, a guidewire was unable to be manipulated down the ureter. The study was then discussed with Dr. Key and, at this time, an attempt at access of an infer ior pole calyx was requested. As a result, the skin and subcutaneous tissues overlying the inferior pole left renal calyx were infiltrated with buffered 1% Lidocaine for local anesthesia. The inferior pole left renal calyx was accessed. However, attempts at manipulating the guidewire distal to the c alculus were unsuccessful. At this point, the patient requested that the procedure be terminated and , as a result, the needle and guidewire were removed, and the procedure was terminated at this point. The left nephroureteral catheter, via a superior access, was then replaced with a new 5 Hebrew neph roureteral catheter. The tip of the catheter was positioned in the distal left ureter and congested injection confirmed placement within the distal left ureter. The patient tolerated the procedure well and without immediate complications. The catheter was secur ed in place with 2-0 Ethilon suture material, and a dry, sterile dressing was placed. IMPRESSION: 1. Left renal staghorn calculus. 2. Mid left renal calyx, as well as an inferior pole left renal calyx, were accessed, with contrast injection confirming placement in the collecting system, but a guidewire was unable to be manipulated distal to the calculus. As a result, a second left nephroureteral catheter was not able to be place d. 3. Replacement of the indwelling left nephroureteral catheter. The above findings were discussed with Dr. Key at the termination of this procedure. CODE CR POS: HEATHER
--- NOTE | 2018-06-27 20:12 | CON ---
DATE OF CONSULTATION: 06/27/2018 REASON FOR CONSULTATION: Atrial fibrillation with RVR. HISTORY OF PRESENT ILLNESS: Ms. Vieyra is a very pleasant 78-year-old white female, very well known to myself. I have been following for some years now. She comes in for nausea, vomiting, and diarrhea. She was diagnosed with septic shock, started on broad-spectrum antibiotics, thought to be related to urinary tract infection. Dr. Key evaluated the patient that she has what appears to be she has staghorn calculus and she is requiring a urostomy tube and eventually will have removal of the stones. She has chronic atrial fibrillation and given the situation. She is currently in rapid ventricular response. She was started on diltiazem drip to slow her down, which has worked. She denies any chest pain, tightness, or pressure. She was last seen in the office about one year ago in April of 2017. She at that point, her only complaint was her shoulder pain, which she was told was related to a pinched nerve. I have done a stress test on her back in 2014, which was normal. She was not interested at that time in 2016, and undergoing any further risk stratification. She did not want anymore stress testing or heart catheterizations. She was on Eliquis 2.5 mg twice a day for her chronic atrial fibrillation for stroke prophylaxis. She tells me that she has been on the Eliquis since and has not really stopped it. She states that she just has been getting it here in the hospital. PAST MEDICAL HISTORY: 1. Chronic atrial fibrillation. 2. Recurrent UTIs. 3. Crohn disease. 4. History of diastolic heart failure. 5. GERD. PAST SURGICAL HISTORY: 1. Left shoulder surgery. 2. Cholecystectomy. 3. Hysterectomy. OUTPATIENT MEDICATIONS: 1. Tizanidine. 2. Zofran p.r.n. 3. Eyedrops. 4. Nystatin powder. 5. Tylenol with codeine. 6. Melatonin. 7. Lipitor 10 mg at bedtime. 8. Zantac 150 mg b.i.d. 9. Trental 400 mg t.i.d. 10. Niacin 250 a day. 11. Zinc sulfate. 12. Lyrica 100 mg b.i.d. 13. Metoprolol tartrate 50 mg b.i.d. 14. Vitamin C daily. 15. Lactobacillus acidophilus daily. 16. Ferrous sulfate. 17. Vitamin D3. 18. Lasix 20 mg. 19. Folic acid. 20. Amlodipine 10 mg. 21. Cranberry. 22. Arginate powder. 23. Allopurinol 100 mg a day. ALLERGIES: 1. DONEPEZIL. 2. MORPHINE. 3. SULFA DRUGS. FAMILY HISTORY: No early coronary artery disease. SOCIAL HISTORY: Lives in [facility]. Denies any alcohol, tobacco, or drugs. She has been DNR for some time now and this continues to be the case. REVIEW OF SYSTEMS: A 12-point review of systems was done and was found to be negative unless stated in the history of present illness. PHYSICAL EXAMINATION: VITAL SIGNS: Temperature 98.6, pulse 105, respiratory rate 20, saturating 94% on 2 L, blood pressure 145/73. GENERAL: Awake, alert, and oriented x3. No distress. HEENT: Normocephalic and atraumatic. NECK: Supple. LUNGS: Clear. CARDIOVASCULAR: Irregularly irregular heart rate in the low 90s. ABDOMEN: Soft, positive bowel sounds. EXTREMITIES: 1+ edema. SKIN: Warm and dry. LABORATORY DATA: Laboratory work was reviewed. CBC, coags, ABGs, and chemistries were reviewed. Potassium was low at 2.8 today. UA was positive for infection. CT of the abdomen and pelvis showed on admission, a large staghorn calculus involving the left intrarenal collecting system with moderate dilation of the left upper pole and dilatation of the left ureteral without associated obstructing calculus. There is low attenuation in the urinary bladder. ASSESSMENT/PLAN: 1. Chronic atrial fibrillation, currently in rapid ventricular response. 2. Return urinary tract infections, complicated. 3. Staghorn calculus, obstructing. PLAN: 1. She is a candidate for full anticoagulation; however, this time has been on hold secondary to her acute illness, requiring tube to be placed in her ureters. May continue to hold. 2. We will try to continue to rate control with diltiazem drip. She is chronically in atrial fibrillation, so having fevers and having an acute infection, having tachycardia may be needed for her as her system is ramped up with this infection. 3. Should be able to undergo lithotripsy, however, Dr. Key seems appropriate. At this time, she needs this to alleviate some of the obstruction and she is not interested in any other further risk stratification and she was low risk with a normal stress test back in 2015. Thank you for letting me to participate in the care of your patient. We will follow. Job ID: [id number]
[2018-06-27] MEDS: Melatonin 3 MG TAB PO SCH (22:04)
[2018-06-27] MEDS: Atorvastatin Calcium 10 MG TAB PO SCH (22:05)
[2018-06-27] MEDS: Fentanyl 100 MCG/2 ML VIAL SLOW IVP PRN (23:47)
[2018-06-28] MEDS: Diltiazem HCl 125 MG, Admixture Fee 1 EACH in Sodium Chloride 0.9% 100 ML IVPB SCH ×2 (01:45→14:06)
[2018-06-28 06:12] LABS: #Basophils 0.1 thou/uL (0.0-0.2); #Lymphocytes 0.6 thou/uL (1.20-3.40); #Neutrophils 12.4 thou/uL (1.40-6.50); %Basophils 0.8 % (0.0-1.0); %Eosinophils 0.2 % (0.0-10.0); %Lymphocytes 4.4 % (21.0-51.0); %Monocytes 7.4 % (0.0-10.0); %Neutrophils 87.3 % (42.0-75.0); Hemoglobin 13.8 g/dL (12.0-16.0); Mean Corpuscular HGB CONC 31.9 g/dL (32.0-36.0); Mean Corpuscular Hemoglobin 29.5 pg (27.0-31.0); Mean Corpuscular Volume 92.6 fL (78.0-98.0); Platelet Count 159 thou/uL (130-400); RBC Distribution Width 14.1 % (11.5-14.5); Red Blood Cell (RBC) Count 4.69 mill/uL (4.20-5.40); White Blood Cell (WBC) Count 14.2 thou/uL (4.8-10.8)
[2018-06-28 06:32] LABS: Anion Gap 13 mmol/L (10-20); BUN (Urea Nitrogen) 20 mg/dL (9.8-20.1); Calc. Creatinine Clearance 45 mL/min (70-130); Calcium 9.7 mg/dL (7.8-10.44); Carbon Dioxide 23 mmol/L (23-31); Chloride 116 mmol/L (98-107); Estimated GFR-MDRD 45; Glucose 108 mg/dL (83-110); Potassium 3.3 mmol/L (3.5-5.1); Sodium 149 mmol/L (136-145)
[2018-06-28] MEDS: Cefepime 2 GM in Sodium Chloride 0.9% 100 ML IVPB SCH ×2 (08:05→21:20)
[2018-06-28] MEDS: Allopurinol 100 MG TAB PO SCH (08:06)
[2018-06-28] MEDS: Pregabalin 50 MG CAP PO SCH ×2 (08:06→21:21)
[2018-06-28] MEDS: Famotidine 20 MG TAB PO SCH (08:07)
[2018-06-28] MEDS: Metoprolol Tartrate 25 MG TAB PO SCH (08:07)
[2018-06-28] MEDS: Benzonatate 100 MG CAP PO PRN (08:08)
[2018-06-28] MEDS: Acetaminophen 325 MG TAB PO PRN (08:08)
[2018-06-28] MEDS: Polyethylene Glycol OPTH DROP 15 ML BOT EA EYE SCH ×2 (08:09→21:22)
--- NOTE | 2018-06-28 08:20 | PRG ---
DATE OF SERVICE: 06/28/2018 SUBJECTIVE: The patient resting, occasional cough, this is improving. OBJECTIVE: VITAL SIGNS: T-max of 100.1, heart rate 105, 131, 99 current; 18, 91% on 4 L, blood pressure 121/69. I's and O's include 1030 and 800, and she is positive 230 mL. ABDOMEN: Soft. Left nephroureteral stent is plugged and adequately secured. Urethral Atkins catheter demonstrates yellow urine. Hematuria improved from yesterday. ABDOMEN: Soft, nontender, nondistended. No rigidity. No rebound. PERTINENT LABORATORY DATA: White count 14, yesterday 13.5; hemoglobin 13, platelet 159, 87 segs. INR 1.4, PTT 36. Kidney function, creatinine of 1.1. 1. Urine culture on this admission demonstrates E. coli pansensitive. 2. Stool culture on admission positive for Cryptosporidium antigen. Chest x-ray on June 26, increased interstitial density and vascular congestion may signify mild interstitial edema, hazy density in the left base, possible pneumonitis or aspiration of volume loss. IMPRESSION AND PLAN: Ms. Vieyra is a 78-year-old female with history of; 1. Escherichia coli urinary tract infection, remote history of escherichia coli, Proteus, presents with left staghorn renal insufficiency improved with observation and fluids. 2. History of gout. 3. History of coronary artery disease followed by Dr. Griffith. 4. History of atrial fibrillation, previously on Eliquis 2.5 mg b.i.d. for chronic atrial fibrillation. 5. Chest x-ray few days ago demonstrating possible interstitial edema. 6. Stool culture on this admission obtained due to diarrhea demonstrating positive for parasites, Cryptosporidium antigen positive. 7. Low-grade fever. RECOMMENDATION: Regarding her left staghorn calculi, unfortunately, the percutaneous access obtained originally is in suboptimal access to proceed with percutaneous nephrolithotomy at a later date for stage intervention of her large left staghorn calculus. Interventional Radiology attempted to reposition the tube yesterday to a different calyx; however, unable to proceed due to anatomy and moreover her deconditioned status. Therefore, the procedure was terminated and she continues to have a nephroureteral stent, which traverses into the collecting system down to the course of her ureter. This will remain in situ for the next few days. I will allow her to rest over the weekend to recover as she is deconditioned. Regarding access into the left collecting system, she is scheduled for cysto, left indwelling ureteral stent, nephroureteral stent removal sunday. As there is hydronephrosis of the upper pole, I will attempt to place a stent into the upper pole moiety if possible. Continue antibiotics per primary and Infectious Disease. She was on Rocephin by Dr. Escobedo; however, this has been changed to Levaquin and cefepime by Primary Service due to concern for hospital-acquired pneumonia. Recommend followup PA lateral chest x-ray. We will obtain CBC, BMP a.m. of surgery, if the patient is stable over the weekend, I will proceed with ureteral stent placement on Sunday. The patient's daughter has been informed regarding her course of action. Appreciate Cardiology consult that she has been cleared to proceed with PCNL at a later date. No anticoagulation over the weekend, which has been approved by Dr. Griffith as she has had recent intervention of percutaneous access and surgical planning for Sunday for ureteral stent. Addendum discussed with Dr. Escobedo recommend septectomy and only on this admission DC Levaquin. Stool culture with Cryptosporidium does not warrant further treatment per infectious disease as her diarrhea has resolved. DR Reynolds covering me over the weekend Job ID: [id number] [facility]
--- NOTE | 2018-06-28 08:57 | RAD ---
PORTABLE CHEST: HISTORY: Respiratory distress. COMPARISON: 06/26/2018 FINDINGS: Heart size is enlarged. A dorsal column stimulator is present. Parenchymal lung changes appear fair ly similar to the prior exam. There is still some increased density in the left base. IMPRESSION: Cardiomegaly, mild vascular engorgement, and interstitial lung changes, essentially stable as compare d to the prior examination, with slightly more prominent retrocardiac parenchymal change also stable. POS: TPC
[2018-06-28] MEDS: Potassium Chloride 40 MEQ in Dextrose 5% in Water 1,000 ML IV SCH (09:29)
[2018-06-28] MEDS: Lactinex Tablet PO SCH (09:29)
--- NOTE | 2018-06-28 11:28 | PRG ---
DATE OF SERVICE: 06/28/2018 SUBJECTIVE: Ms. Vieyra has displayed dry cough quite persistent for the past 24 to 48 hours. Some abdominal pain. No genitourinary symptoms other than the indwelling Atkins catheter. LABORATORY DATA: White cell count 14.2, hemoglobin 13, platelets 149, 87% neutrophils. Creatinine is at 1.17. The chest x-ray demonstrated cardiomegaly, mild vascular engorgement. This tissue lung changes fairly stable compared with prior exam. MICROBIOLOGY DATA: Nothing new. The C. diff was negative. She is not having diarrhea any more. ASSESSMENT AND DISCUSSION: Coronary artery disease; Crohn disease, in remission ; hyperuricemia; nausea, vomiting, diarrhea, which has resolved now; diffuse abdominal tenderness; staghorn calculus, left kidney with obstruction. Positive urine cultures and abnormal urinalysis. Now, she has a lot of coughing spells and because of the cough, she may have cracked ribs on the left side and that is causing the chest pain. The cough could be secondary to ischemic cardiomyopathy with early interstitial edema. My management from the standpoint of the UTI and staghorn calculus remains the same. She has been evaluated by Cardiology for management of atrial fibrillation with RVR and is currently on diltiazem drip for rate control and anticoagulation has been withheld because of the risk associated with acute illness and the need for management of her kidney stone issue. Consider switching back to Rocephin daily. Job ID: [id number] [facility]
--- NOTE | 2018-06-28 13:36 | PDOC.PN ---
- Subjective Encounter Start Date: 06/28/18 Encounter Start Time: 13:34 Patient seen and examined, no new issues or complaints overnight. - Objective Resuscitation Status - Order Detail: 06/25/18 16:53 Resuscitation Status Routine Resuscitation Status: FULL: Full Resuscitation Discussed with: Dr. Villalobos and pt's daughter Tierra Faye Vital Signs & Weight: Vital Signs (12 hours) Temp Pulse Resp BP Pulse Ox 06/28/18 11:46 97.6 F 88 20 122/66 96 06/28/18 07:57 100.2 F H 109 H 20 124/65 92 L Weight Admit Weight 171 lb 9.6 oz Weight 159 lb 4.8 oz I&O: 06/27/18 06/28/18 06/29/18 06:59 06:59 06:59 Intake Total 1030 Output Total 800 Balance 230 Result Diagrams: 06/28/18 05:15 06/28/18 05:15 Phys Exam - Physical Examination Constitutional: NAD HEENT: PERRLA, moist MMs Neck: no nodes, no JVD, supple Respiratory: no wheezing, no rales, no rhonchi Cardiovascular: RRR, no significant murmur, no rub Gastrointestinal: soft, non-tender, no distention Dx/Plan (1) Sepsis Code(s): A41.9 - SEPSIS, UNSPECIFIED ORGANISM Status: Acute (2) UTI (urinary tract infection) Status: Acute (3) Gastroenteritis Code(s): K52.9 - NONINFECTIVE GASTROENTERITIS AND COLITIS, UNSPECIFIED Status : Acute (4) Afib Code(s): I48.91 - UNSPECIFIED ATRIAL FIBRILLATION Status: Chronic (5) HTN (hypertension) Code(s): I10 - ESSENTIAL (PRIMARY) HYPERTENSION Status: Chronic (6) PVD (peripheral vascular disease) Code(s): I73.9 - PERIPHERAL VASCULAR DISEASE, UNSPECIFIED Status: Chronic - Plan * start D5W + 40meq KCl , will give 2L then DC * monitor labs * sunday patient to go for retrograde stent placement * no anticoagulation for now risks > benefits * cardio and urology following * no other changes in plan of care
--- NOTE | 2018-06-28 15:59 | PDOC.CTH ---
Cardiology Progress Note - Subjective No new issues. Afib better controlled. - Objective Vital Signs Temp Pulse Resp BP Pulse Ox 06/28/18 11:46 97.6 F 88 20 122/66 96 06/28/18 07:57 100.2 F H 109 H 20 124/65 92 L Admit Weight 171 lb 9.6 oz Weight 159 lb 4.8 oz 06/27/18 06/28/18 06/29/18 06:59 06:59 06:59 Intake Total 1030 Output Total 800 Balance 230 - Physical Examination General/Neuro: alert & oriented x3, NAD Neck: no JVD present Lungs: CTA, unlabored respirations Heart: other: (Irregularly irregular) Abdomen: NT/ND Extremities: + edema B (1+) - Telemetry Telemetry Rhythm: Afib HR 80's. - Labs Result Diagrams: 06/28/18 05:15 06/28/18 05:15 Troponin/CKMB CK-MB (CK-2) 0.8 ng/mL (0-6.6) 06/23/18 15:04 - Assessment/Plan 1. Chronic afib in RVR now rate controlled again. 2. UTI 3. Staghorn calculus, obstructing PLAN; - Continue rate control - Will switch diltiazem to PO. - Will consider anticoagulation after surgery for his kidney stones. - Replace K
[2018-06-28] MEDS: Fentanyl 100 MCG/2 ML VIAL SLOW IVP PRN (18:36)
[2018-06-28] MEDS: Melatonin 3 MG TAB PO SCH (21:20)
[2018-06-28] MEDS: Atorvastatin Calcium 10 MG TAB PO SCH (21:21)
[2018-06-28] MEDS: Metoprolol Tartrate 50 MG TAB PO SCH (21:21)
--- NOTE | 2018-06-28 22:26 | RAD ---
FRONTAL VIEW CHEST: 06/28/18 COMPARISON: Earlier same day. CLINICAL HISTORY: Respiratory distress. FINDINGS: There is enlargement of the cardiac silhouette and pulmonary vasculature with bilateral perihilar int erstitial prominence. There is retrocardiac left lower lobe opacity with obscuration of the left hem idiaphragm and effacement of the left costophrenic sulcus. There is stable blunting of the lateral ri ght costophrenic sulcus. Chest otherwise similar in appearance. IMPRESSION: 1. Left basilar consolidation suggests pneumonia. Probable associated left pleural effusion. 2. Evidence to indicate fluid overload from CHF. POS: [facility]
[2018-06-28] MEDS ORDERED: Furosemide 40 MG/4 ML VIAL ONE (22:33)
[2018-06-29] MEDS: Potassium Chloride 40 MEQ in Dextrose 5% in Water 1,000 ML IV SCH (00:35)
[2018-06-29] MEDS ORDERED: Furosemide 20 MG/2 ML VIAL SLOW IVP SCH (00:45)
[2018-06-29] MEDS ORDERED: Acetaminophen 1,000 MG in Premix Bag 1 BAG IVPB SCH (00:45)
[2018-06-29 05:15] LABS: Actual Bicarbonate (HCO3a) 22.4 mEq/L (22-28); Base Excess (BEa) -4.1 mEq/L (-2.0 to +3.0); CO2 Tension 46.2 mmHg (35.0-45.0)
[2018-06-29 05:16] LABS: Calcium, Ionized 1.25 mmol/L (1.12-1.30); Carboxyhemoglobin (COHb) 0.8 gm% (0.0-3.0); Hemoglobin (Hb) 13.4 g/dL (12.0-16.0); Potassium - ABG Lab 3.55 mmol/L (3.70-5.30)
[2018-06-29 05:17] LABS: Analyzer IN Cardio OR; Puncture Site R RADIAL
[2018-06-29] MEDS: Cefepime 2 GM in Sodium Chloride 0.9% 100 ML IVPB SCH ×2 (08:20→20:46)
[2018-06-29] MEDS: Polyethylene Glycol OPTH DROP 15 ML BOT EA EYE SCH ×2 (08:22→21:34)
[2018-06-29] MEDS: Allopurinol 100 MG TAB PO SCH (08:48)
[2018-06-29] MEDS: Famotidine 20 MG TAB PO SCH (08:49)
[2018-06-29] MEDS: Pregabalin 50 MG CAP PO SCH ×2 (09:00→20:25)
[2018-06-29] MEDS: Metoprolol Tartrate 50 MG TAB PO SCH (09:00)
[2018-06-29] MEDS: Lactinex Tablet PO SCH (09:00)
--- NOTE | 2018-06-29 11:36 | PDOC.PN ---
- Subjective Encounter Start Date: 06/29/18 Encounter Start Time: 11:35 Patient seen and examined, niece at bedside. - Objective Resuscitation Status - Order Detail: 06/25/18 16:53 Resuscitation Status Routine Resuscitation Status: FULL: Full Resuscitation Discussed with: Dr. Villalobos and pt's daughter Tierra Faye Vital Signs & Weight: Vital Signs (12 hours) Temp Pulse Resp BP Pulse Ox 06/29/18 11:20 95 06/29/18 11:16 124 H 28 H 95 06/29/18 08:00 96.3 F L 104 H 21 H 121/81 94 L 06/29/18 04:44 99.0 F 85 20 92/53 L 97 06/29/18 00:22 104.2 F H 06/29/18 00:00 102.1 F H 106 H 24 H 133/60 95 Weight Admit Weight 171 lb 9.6 oz Weight 159 lb 4.8 oz I&O: 06/28/18 06/29/18 06/30/18 06:59 06:59 06:59 Intake Total 1070 Output Total 1350 Balance -280 Result Diagrams: 06/28/18 05:15 06/28/18 05:15 Phys Exam - Physical Examination respiratory distress HEENT: PERRLA, moist MMs, sclera anicteric Neck: no nodes, no JVD, supple coarse breath sounds decreased breath sounds Left lung base Cardiovascular: no significant murmur tachycardia Gastrointestinal: soft, non-tender, no distention Musculoskeletal: pulses present, edema present (trace) Dx/Plan (1) Sepsis Code(s): A41.9 - SEPSIS, UNSPECIFIED ORGANISM Status: Acute (2) UTI (urinary tract infection) Status: Acute (3) Gastroenteritis Code(s): K52.9 - NONINFECTIVE GASTROENTERITIS AND COLITIS, UNSPECIFIED Status : Acute (4) Afib Code(s): I48.91 - UNSPECIFIED ATRIAL FIBRILLATION Status: Chronic (5) HTN (hypertension) Code(s): I10 - ESSENTIAL (PRIMARY) HYPERTENSION Status: Chronic (6) PVD (peripheral vascular disease) Code(s): I73.9 - PERIPHERAL VASCULAR DISEASE, UNSPECIFIED Status: Chronic (7) Fluid overload Code(s): E87.70 - FLUID OVERLOAD, UNSPECIFIED Status: Acute (8) Shortness of breath Code(s): R06.02 - SHORTNESS OF BREATH Status: Acute - Plan * The patient has a staghorn calculus which is obstructing left kidney * patient this AM was hypoxic recurrently and thus was given duonebs and a CXR was done, patient appears to have significant worsening of pulmonary congestion and also has a new left sided pleural effusion (final radiological read pending , this is my interpretation) * at this point in time patient is on antibiotics and I'm worried about bolusing her fluids as she already has significant fluid overload * patient also has atrial fibrillation in the background, off anticoagulation for now * patient had attempts to exchange nephrostomy tube on 06/27/2018 unsucessfully and so now the plan was to go to the OR with urology for retrograde stent placement on sunday * will place patient on bipap for now 06/01/50% and transfer to [facility] * patient's condition explained to the neice who's at bedside at length * for now will DC lasix and monitor patient closely, will not give any IVFs as patient is volume overloaded * case and plan d/w patient's niece at length, she understood and agreed with this plan
[2018-06-29 12:25] LABS: Lactic Acid 1.5 mmol/L (0.5-2.2)
--- NOTE | 2018-06-29 12:56 | RAD ---
CHEST 1 VIEW: Date: 06/29/18 HISTORY: Hypoxia. COMPARISON: Radiograph from prior day. FINDINGS: Heart size is enlarged. There are layering effusions, larger on the left. Moderate edema. No pneumoth orax. IMPRESSION: Findings suggest decompensated congestive heart failure. POS: [facility]
[2018-06-29 13:08] LABS: Actual Bicarbonate (HCO3a) 24.2 mEq/L (22-28); Base Excess (BEa) -3.6 mEq/L (-2.0 to +3.0); CO2 Tension 54.6 mmHg (35.0-45.0); Calcium, Ionized 1.26 mmol/L (1.12-1.30); Carboxyhemoglobin (COHb) 1.2 gm% (0.0-3.0); Hemoglobin (Hb) 14.4 g/dL (12.0-16.0); O2 Tension (PaO2) 69.1 mmHg (> 70.0); Potassium - ABG Lab 3.31 mmol/L (3.70-5.30); pH, Arterial 7.26 (7.35-7.45)
[2018-06-29 13:10] LABS: Puncture Site RRA
[2018-06-29] MEDS ORDERED: Furosemide 40 MG/4 ML VIAL SLOW IVP SCH (14:11)
[2018-06-29] MEDS ORDERED: Furosemide 40 MG/4 ML VIAL ONE (14:15)
[2018-06-29] MEDS: Diltiazem 125 MG in Sodium Chloride 0.9% 100 ML IVPB SCH (14:40)
[2018-06-29 14:47] LABS: #Basophils 0.1 thou/uL (0.0-0.2); #Eosinphils 0.1 thou/uL (0.0-0.7); #Lymphocytes 0.7 thou/uL (1.20-3.40); #Monocytes 0.9 thou/uL (0.11-0.59); %Basophils 0.6 % (0.0-1.0); %Eosinophils 0.8 % (0.0-10.0); %Monocytes 6.3 % (0.0-10.0); %Neutrophils 87.4 % (42.0-75.0); Hemoglobin 14.2 g/dL (12.0-16.0); Mean Corpuscular HGB CONC 32.3 g/dL (32.0-36.0); Mean Corpuscular Hemoglobin 30.2 pg (27.0-31.0); Mean Corpuscular Volume 93.4 fL (78.0-98.0); Mean Platelet Volume 9.4 fL (7.4-10.4); Platelet Count 146 thou/uL (130-400); RBC Distribution Width 14.2 % (11.5-14.5); Red Blood Cell (RBC) Count 4.71 mill/uL (4.20-5.40); White Blood Cell (WBC) Count 13.7 thou/uL (4.8-10.8)
[2018-06-29 15:07] LABS: ALT (SGPT) 11 U/L (8-55); AST (SGOT) 25 U/L (5-34); Albumin 3.3 g/dL (3.4-4.8); Alkaline Phosphatase 77 U/L (40-150); Anion Gap 15 mmol/L (10-20); BUN (Urea Nitrogen) 25 mg/dL (9.8-20.1); Bilirubin, Total 0.5 mg/dL (0.2-1.2); Calc. Creatinine Clearance 38 mL/min (70-130); Calcium 9.6 mg/dL (7.8-10.44); Carbon Dioxide 22 mmol/L (23-31); Chloride 111 mmol/L (98-107); Estimated GFR-MDRD 37; Globulin 3.8 g/dL (2.4-3.5); Glucose 116 mg/dL (83-110); Potassium 3.5 mmol/L (3.5-5.1); Protein, Total 7.1 g/dL (6.0-8.3); Sodium 144 mmol/L (136-145)
--- NOTE | 2018-06-29 16:39 | CON ---
DATE OF CONSULTATION: 06/29/2018 TIME SPENT: This is 45 minutes of critical care time. REASON FOR CONSULTATION: Pending respiratory failure. HISTORY OF PRESENT ILLNESS: The patient is unable to give history at this time as she is extremely dyspneic and is on BiPAP. My understanding after speaking with nursing staff and talking with the attending physician is that the patient had been doing well up until today. She is currently in the hospital for treatment of a staghorn calculus that required a urostomy tube. I think the urostomy tube is somewhat dysfunctional at this time and there were plans for revision on Sunday. She is currently being seen by Cardiology for atrial fibrillation. Today, she developed severe shortness of breath, atrial fibrillation with rapid ventricular response and severe shortness of breath and was transferred to the Intermediate Care Unit without my knowledge. Upon my arrival, the patient appeared in severe distress and her AFib was not currently being treated with any type of IV medication and her rate was running about 155. Based on the fact of high risk for decompensation, I have elected to move her over to the critical care unit. PAST MEDICAL HISTORY: 1. Chronic atrial fibrillation. 2. Recurrent UTIs. 3. Crohn disease. 4. Staghorn calculus of the ureter. 5. Diastolic heart failure. 6. Gastroesophageal reflux. PAST SURGICAL HISTORY: 1. Left shoulder surgery. 2. Cholecystectomy. 3. Hysterectomy. MEDICATIONS: Current inpatient medications are; 1. Tylenol. 2. Floranex. 3. DuoNeb. 4. Zyloprim. 5. Lipitor. 6. Tessalon. 7. Cefepime. 8. Levofloxacin. 9. Pepcid. 10. Melatonin. 11. Lopressor. 12. Zofran. 13. Trental. 14. Lyrica. 15. Propylene glycol. 16. Zanaflex. Outpatient medications were also reviewed and these are listed on the chart. ALLERGIES: DONEPEZIL, MORPHINE, SULFA, SULFAMETHOXAZOLE AND TRIMETHOPRIM. FAMILY MEDICAL HISTORY: Unremarkable. SOCIAL HISTORY: She lives in a detention in [place]. Does not smoke. Does not drink. Does not consume alcohol. Apparently, she has been DNR in the past. There is not an order for DNR on the chart that I can see, although it is difficult to discern. PHYSICAL EXAMINATION: VITAL SIGNS: Temperature 100.2, pulse 155, respiratory rate in mid 30s, O2 sat 94% on BiPAP, and blood pressure 156/102. GENERAL: This lady looks around but is noncommunicative orally. She appears to be in profound respiratory discomfort. HEENT: Pupils are reactive. Oropharynx, BiPAP mask on. NECK: No JVD. CARDIAC: S1 and S2, irregularly irregular and tachycardic. LUNGS: Crackles at both bases. ABDOMEN: Soft, slightly tender. EXTREMITIES: No clubbing, cyanosis, or edema. LABORATORY DATA: No labs have been done today except for blood gas, which showed a pH of 7.26, pCO2 of 54, pO2 of 69, that was on BiPAP. Her cultures are growing out E coli, which is sensitive to all the antibiotics on the panel. ASSESSMENT: 1. Atrial fibrillation with rapid ventricular response and development of pulmonary edema, effusions, cardiomegaly suggestive of congestive heart failure. 2. Current Escherichia coli sepsis, which is being treated appropriately with antibiotics. 3. Acute hypoxic respiratory failure. 4. Atrial fibrillation with rapid ventricular response. PLAN: 1. Transfer to ICU. 2. Cardizem for rate control. 3. Continue BiPAP for the time being, but low threshold for intubation if needed. 4. We need to clarify her code status, as Dr. Barton's note from 06/23 has something about do not attempt resuscitation order, but is not completely clarified in the order set. 5. Continue antibiotics. 6. One dose of diuretics to see how she responds. 7. Check labs. Check BNP. Job ID: [id number]
[2018-06-29] MEDS: Melatonin 3 MG TAB PO SCH (20:24)
[2018-06-29] MEDS: Atorvastatin Calcium 10 MG TAB PO SCH (20:24)
[2018-06-30 05:29] LABS: #Eosinphils 0.1 thou/uL (0.0-0.7); #Lymphocytes 0.8 thou/uL (1.20-3.40); #Monocytes 1.1 thou/uL (0.11-0.59); #Neutrophils 8.5 thou/uL (1.40-6.50); %Basophils 0.1 % (0.0-1.0); %Eosinophils 0.6 % (0.0-10.0); %Lymphocytes 7.4 % (21.0-51.0); %Monocytes 10.5 % (0.0-10.0); %Neutrophils 81.5 % (42.0-75.0); Hemoglobin 12.7 g/dL (12.0-16.0); Mean Corpuscular HGB CONC 32.7 g/dL (32.0-36.0); Mean Corpuscular Hemoglobin 30.3 pg (27.0-31.0); Mean Corpuscular Volume 92.6 fL (78.0-98.0); Mean Platelet Volume 10.4 fL (7.4-10.4); Platelet Count 126 thou/uL (130-400); White Blood Cell (WBC) Count 10.4 thou/uL (4.8-10.8)
[2018-06-30 05:46] LABS: Anion Gap 13 mmol/L (10-20); BUN (Urea Nitrogen) 27 mg/dL (9.8-20.1); Calc. Creatinine Clearance 39 mL/min (70-130); Calcium 9.1 mg/dL (7.8-10.44); Carbon Dioxide 26 mmol/L (23-31); Chloride 111 mmol/L (98-107); Estimated GFR-MDRD 38; Glucose 89 mg/dL (83-110); Potassium 3.2 mmol/L (3.5-5.1); Sodium 147 mmol/L (136-145)
[2018-06-30] MEDS ORDERED: Furosemide 40 MG/4 ML VIAL SLOW IVP SCH (07:45)
[2018-06-30] MEDS ORDERED: Potassium Chloride 40 MEQ in Premix Bag 1 BAG IVPB SCH (07:45)
--- NOTE | 2018-06-30 08:25 | PRG ---
DATE OF SERVICE: 06/30/2018 PULMONARY/CRITICAL CARE PROGRESS NOTE. TIME SPENT: 35 minutes of critical care time. SUBJECTIVE: This patient remains on BiPAP. She will wake up, follows some commands. OBJECTIVE: VITAL SIGNS: On exam, temperature is 98.9, pulse 124, blood pressure 125/70, O2 sat 96%, and respiratory rate 23. She has had no fever overnight. Her Cardizem is currently at 10 mg/hour. HEENT: Unremarkable. NECK: No JVD. LUNGS: Inspiratory crackles at both bases. CARDIAC: S1 and S2, irregularly irregular. ABDOMEN: Soft, nontender. EXTREMITIES: No edema. LABORATORY DATA: White blood cell count 10.4, hematocrit 38.9, and platelet count 126. Sodium 147, potassium 3.2, chloride 111, CO2 of 26, BUN 27, creatinine 1.3, and glucose 89. BNP yesterday was 283. ASSESSMENT: 1. Acute respiratory failure requiring noninvasive mechanical ventilation. 2. Atrial flutter/fibrillation with rapid ventricular response - still too tachycardic from my taste. 3. Urosepsis from staghorn calculus. PLAN: The patient is not weanable from mechanical ventilation yet. She needs to have her potassium replaced and she needs more diuretics. Her potassium will be continually monitored. I will check a chest x-ray tomorrow. At this point, she would not be a candidate for intervention in regard to further treatment of the urostomy tube until she is better from a cardiac situation or if she is intubated perioperatively. Job ID: [id number]
[2018-06-30] MEDS: Lactinex Tablet PO SCH (09:27)
[2018-06-30] MEDS: Allopurinol 100 MG TAB PO SCH (09:27)
[2018-06-30] MEDS: Cefepime 2 GM in Sodium Chloride 0.9% 100 ML IVPB SCH ×2 (09:27→20:54)
[2018-06-30] MEDS: Famotidine 20 MG TAB PO SCH (09:28)
[2018-06-30] MEDS: Polyethylene Glycol OPTH DROP 15 ML BOT EA EYE SCH ×2 (09:28→20:54)
[2018-06-30] MEDS: Pregabalin 50 MG CAP PO SCH ×2 (09:48→20:56)
[2018-06-30] MEDS: Potassium Chloride 20 MEQ in Premix Bag 1 BAG IVPB SCH ×2 (10:27→13:01)
--- NOTE | 2018-06-30 11:16 | PDOC.PN ---
- Subjective Encounter Start Date: 06/30/18 Encounter Start Time: 11:14 Patient seen and examined, no new issues or complaints. - Objective Resuscitation Status - Order Detail: 06/25/18 16:53 Resuscitation Status Routine Resuscitation Status: FULL: Full Resuscitation Discussed with: Dr. Villalobos and pt's daughter Tierra Faye Vital Signs & Weight: Vital Signs (12 hours) Temp Pulse Resp Pulse Ox 06/30/18 08:01 97 06/30/18 08:00 99.6 F 06/30/18 06:00 26 H 06/30/18 04:00 98.9 F 19 06/30/18 03:00 101 H 06/30/18 02:00 25 H 06/30/18 00:00 99.0 F 25 H Weight Admit Weight 166 lb 10.711 oz Weight 159 lb 4.8 oz Most Recent Monitor Data Heart Rate from ECG 135 NIBP 120/88 NIBP BP-Mean 98 Respiration from ECG 24 SpO2 95 I&O: 06/29/18 06/30/18 07/01/18 06:59 06:59 06:59 Intake Total 1070 368.1 160 Output Total 1350 1680 250 Balance -280 -1311.9 -90 Result Diagrams: 06/30/18 04:17 06/30/18 04:17 Phys Exam - Physical Examination Constitutional: NAD HEENT: PERRLA, moist MMs, sclera anicteric Neck: no nodes, no JVD, supple Respiratory: no wheezing, no rales, no rhonchi Cardiovascular: no significant murmur, irregular Gastrointestinal: soft, non-tender, no distention Musculoskeletal: pulses present, edema present (trace) Dx/Plan (1) Sepsis Code(s): A41.9 - SEPSIS, UNSPECIFIED ORGANISM Status: Acute (2) UTI (urinary tract infection) Status: Acute (3) Gastroenteritis Code(s): K52.9 - NONINFECTIVE GASTROENTERITIS AND COLITIS, UNSPECIFIED Status : Acute (4) Afib Code(s): I48.91 - UNSPECIFIED ATRIAL FIBRILLATION Status: Chronic (5) HTN (hypertension) Code(s): I10 - ESSENTIAL (PRIMARY) HYPERTENSION Status: Chronic (6) PVD (peripheral vascular disease) Code(s): I73.9 - PERIPHERAL VASCULAR DISEASE, UNSPECIFIED Status: Chronic (7) Fluid overload Code(s): E87.70 - FLUID OVERLOAD, UNSPECIFIED Status: Acute (8) Shortness of breath Code(s): R06.02 - SHORTNESS OF BREATH Status: Acute - Plan * cont cardizem, may need to switch to amiodarone, cardio following * possible plan for retrograde stent placement in AM * cont abx, will monitor lasix with caution as the left kidney will also produce urine and the patient has an obstructing left sided staghorn calculi * no family at bedside * echo pending * cont current plan of care
[2018-06-30] MEDS ORDERED: Digoxin 0.5 MG/2 ML AMP SLOW IVP SCH (11:30)
[2018-06-30] MEDS: Diltiazem 125 MG in Sodium Chloride 0.9% 100 ML IVPB SCH (13:01)
[2018-06-30] MEDS: Acetaminophen 325 MG TAB PO PRN (13:05)
[2018-06-30 15:35] LABS: Potassium 4.1 mmol/L (3.5-5.1)
[2018-06-30] MEDS: Digoxin 0.5 MG/2 ML AMP SLOW IVP SCH (18:30)
[2018-06-30] MEDS: Atorvastatin Calcium 10 MG TAB PO SCH (20:55)
[2018-06-30] MEDS: Melatonin 3 MG TAB PO SCH (20:59)
[2018-07-01] MEDS: Digoxin 0.5 MG/2 ML AMP SLOW IVP SCH ×2 (00:27→09:07)
[2018-07-01] MEDS: Diltiazem 125 MG in Sodium Chloride 0.9% 100 ML IVPB SCH ×2 (02:35→16:14)
[2018-07-01 07:33] LABS: #Eosinphils 0.1 thou/uL (0.0-0.7); #Lymphocytes 1.1 thou/uL (1.20-3.40); #Monocytes 1.3 thou/uL (0.11-0.59); #Neutrophils 10.1 thou/uL (1.40-6.50); %Basophils 0.2 % (0.0-1.0); %Eosinophils 0.9 % (0.0-10.0); %Lymphocytes 8.8 % (21.0-51.0); %Monocytes 10.3 % (0.0-10.0); %Neutrophils 79.8 % (42.0-75.0); Hemoglobin 14.4 g/dL (12.0-16.0); Mean Corpuscular HGB CONC 31.7 g/dL (32.0-36.0); Mean Corpuscular Hemoglobin 29.3 pg (27.0-31.0); Mean Corpuscular Volume 92.5 fL (78.0-98.0); Mean Platelet Volume 10.3 fL (7.4-10.4); Platelet Count 147 thou/uL (130-400); RBC Distribution Width 13.9 % (11.5-14.5); Red Blood Cell (RBC) Count 4.91 mill/uL (4.20-5.40); White Blood Cell (WBC) Count 12.6 thou/uL (4.8-10.8)
[2018-07-01 07:55] LABS: Anion Gap 15 mmol/L (10-20); BUN (Urea Nitrogen) 32 mg/dL (9.8-20.1); Calc. Creatinine Clearance 37 mL/min (70-130); Calcium 9.9 mg/dL (7.8-10.44); Carbon Dioxide 24 mmol/L (23-31); Chloride 113 mmol/L (98-107); Estimated GFR-MDRD 37; Glucose 99 mg/dL (83-110); Potassium 3.6 mmol/L (3.5-5.1); Sodium 148 mmol/L (136-145)
[2018-07-01] MEDS ORDERED: Potassium Chloride 40 MEQ in Sodium Chloride 0.9% 250 ML 250 ML IVPB SCH (08:00)
--- NOTE | 2018-07-01 08:11 | PRG ---
DATE OF SERVICE: 07/01/2018 INPATIENT PROGRESS NOTE SUBJECTIVE: The patient is alert, awake, cooperative to physical exam with vital signs at T-max of 98.2. Her last fever is 100.5 on June 29 at 4 p.m. Events of over the weekend reviewed. Had a temperature of 104 on June 29, transitioned to ICU. OBJECTIVE: GENERAL: Currently, she is not intubated, alert and awake. VITAL SIGNS: Stable. Afebrile. On Cardizem drip, heart rates in the 80s to 90s, but the patient had acute respiratory failure, on noninvasive mechanical ventilation over the weekend. Remained tachycardic over the week. Currently, heart rate in the 80s to 90s. ABDOMEN: Left percutaneous nephroureteral stent has been converted to a leg bag. Of note, this tube traverses the left collecting system down to the distal ureter, drainage is same as an indwelling ureteral stent. Her Atkins catheter has decreased output, however, she has been leaking around her catheter. Soft, nontender, nondistended. I did flush the catheter at bedside demonstrating patency. EXTREMITIES: No cyanosis, clubbing or edema. PERTINENT LABORATORY DATA: Creatinine yesterday is 1.3. A.m. labs are pending. White count over the weekend it was 13,000 to 14,000, this morning is 10,000; hemoglobin 12; and platelet 126. Repeat cultures; blood culture and urine culture negative on June 28. On June 23, urine culture, Escherichia coli, pansensitive. IMPRESSION AND PLAN: Ms. Vieyra is a 78-year-old female with past medical history of, 1. History of atrial fibrillation. 2. Coronary artery disease followed by Dr. Griffith, previously on Eliquis 2.5 mg b.i.d. for chronic atrial fibrillation. 3. History of gout. 4. History of diarrhea on this admission with Cryptosporidium antigen positive. Per Infectious Disease, no further treatment is necessary. Diarrhea is resolved. 5. She presents with Escherichia coli urinary tract infection with left staghorn , status post percutaneous access. Although, the nephroureteral stent is draining the left collecting system, previous CT demonstrated no significant hydronephrosis except to the upper pole moiety. Unfortunately, the left percutaneous nephroureteral access is unable to be utilized for percutaneous nephrolithotomy. I did have this patient schedule for internalization of the stent today, however, due to events over the weekend, I will allow the patient to recover and be medically optimized. She remains on Cardizem drip with heart rate better controlled. We will obtain staging Lasix renal scan. If she improves over the next day or two, I will consider internalizing her stent this Sunday. May resume her cardiac diet today. Continue cefepime per Primary Service. Of note, Dr. Escobedo previously prefer Rocephin for her urinary tract infection component. Cardiology heading matcher and assembler following. Appreciate their input. Staging Lasix renal scan advised to assess functionality of her left kidney. Her daughter was informed regarding progress disposition/plan Job ID: [id number] MTDD
--- NOTE | 2018-07-01 08:43 | PRG ---
DATE OF SERVICE: SUBJECTIVE: The patient remains in the ICU. Did not need BiPAP yesterday, which is an encouraging sign. She will speak but is soft with her voice. OBJECTIVE: VITAL SIGNS: Temperature 98.2, pulse 87, blood pressure 140/86, O2 saturation 95%. She is given Cardizem at 8 mg/hour. She was started on digoxin yesterday. 24-hour intake 1080, output 1835. Weight 154 pounds. HEENT: Unremarkable. NECK: No JVD. CHEST: Clear today. CARDIAC: S1 and S2. Irregularly irregular but rate controlled. ABDOMEN: Soft. EXTREMITIES: No edema. LABORATORY DATA: White blood cell count 12.6, hematocrit 45.4, and platelet count 147. Sodium 147, potassium 3.3, chloride 111, CO2 of 26, BUN 27, creatinine 1.3, glucose 89. ASSESSMENT: The patient had high output cardiac failure from uncontrolled atrial fibrillation. Now that her rate is now controlled, her x-ray has began to clear up and she has diuresed. Her respiratory failure has resolved and we are now starting to come back down her Cardizem. RECOMMENDATIONS: 1. We will continue to wean the Cardizem. 2. Hold diuresis today. 3. Replace potassium. 4. She is scheduled for a renal scan in nuclear medicine today. We will see how she does with that. Job ID: [id number]
[2018-07-01] MEDS: Cefepime 2 GM in Sodium Chloride 0.9% 100 ML IVPB SCH ×2 (09:11→20:35)
[2018-07-01] MEDS: Famotidine 20 MG TAB PO SCH (09:13)
[2018-07-01] MEDS: Allopurinol 100 MG TAB PO SCH (09:13)
--- NOTE | 2018-07-01 09:13 | RAD ---
SINGLE VIEW OF THE CHEST: Comparison: 06-29-18 History: Ventilated patient with respiratory failure. FINDINGS: Single view of the chest shows an enlarged but stable cardiomediastinal silhouette with atherosclerot ic calcifications in the aorta. Increased interstitial markings are present. There is questionable ai rspace opacity projecting over the left lower lobe. Post-surgical changes are seen in the spine and b oth shoulders. IMPRESSION: Left lower lobe atelectasis versus infiltrate. POS: [facility]
[2018-07-01] MEDS: Pregabalin 50 MG CAP PO SCH ×2 (09:33→20:41)
[2018-07-01] MEDS: Polyethylene Glycol OPTH DROP 15 ML BOT EA EYE SCH ×2 (12:24→20:36)
[2018-07-01 13:59] VITALS: BMI 24.8
--- NOTE | 2018-07-01 14:38 | PDOC.PN ---
- Subjective Encounter Start Date: 07/01/18 Encounter Start Time: 10:20 Pt seen for followup re: acute hypercapnic respiratory failure. Denies chest pain. SOBOE+ - Objective Resuscitation Status - Order Detail: 06/25/18 16:53 Resuscitation Status Routine Resuscitation Status: FULL: Full Resuscitation Discussed with: Dr. Villalobos and pt's daughter Tierra EVANS Reviewed: Yes Vital Signs & Weight: Vital Signs (12 hours) Temp Pulse Pulse Ox 07/01/18 09:07 84 07/01/18 08:00 97.6 F 98 07/01/18 04:00 98.2 F 07/01/18 03:25 97 Weight Admit Weight 166 lb 10.711 oz Weight 154 lb Most Recent Monitor Data Heart Rate from ECG 80 NIBP 147/75 NIBP BP-Mean 99 Respiration from ECG 25 SpO2 98 I&O: 06/30/18 07/01/18 07/02/18 06:59 06:59 06:59 Intake Total 368.1 1080 100 Output Total 1680 1835 340 Balance -1311.9 -755 -240 Result Diagrams: 07/02/18 05:56 07/02/18 05:56 EKG Reviewed by me: Yes (Tele: [email or web address] [email or web address]) Phys Exam - Physical Examination Constitutional: NAD HEENT: moist MMs Neck: supple Respiratory: clear to auscultation bilateral Cardiovascular: irregular Gastrointestinal: soft nephrostomy Neurological: moves all 4 limbs Psychiatric: normal affect Dx/Plan (1) Acute hypercapnic respiratory failure Code(s): J96.02 - ACUTE RESPIRATORY FAILURE WITH HYPERCAPNIA Status: Acute Comment: Improving, secondary to volume overload (2) Fluid overload Code(s): E87.70 - FLUID OVERLOAD, UNSPECIFIED Status: Acute Comment: Improving with NIPPV (3) Staghorn kidney stones Code(s): N20.0 - CALCULUS OF KIDNEY Status: Acute Comment: continue IV antibiotics as below (4) Afib Code(s): I48.91 - UNSPECIFIED ATRIAL FIBRILLATION Status: Chronic Comment: rate-controlled with cardizem (5) HTN (hypertension) Code(s): I10 - ESSENTIAL (PRIMARY) HYPERTENSION Status: Chronic - Plan * . Review of Systems - Review of Systems Respiratory: SOB with Excertion. negative: Cough, Shortness of Breath, Pleuritic Pain, Wheezing Cardiovascular: negative: chest pain, palpitations, orthopnea, paroxysmal nocturnal dyspnea, edema, light headedness - Medications/Allergies Allergies/Adverse Reactions: Allergies Allergy/AdvReac Type Severity Reaction Status Date / Time donepezil HCl [From Aricept] Allergy Verified 06/13/17 15:30 morphine Allergy Verified 06/13/17 15:30 Sulfa (Sulfonamide Allergy Verified 06/13/17 15:30 Antibiotics) sulfamethoxazole Allergy Verified 06/13/17 15:30 [From Bactrim] trimethoprim [From Bactrim] Allergy Verified 06/13/17 15:30 Medications: Current Medications Acetaminophen (Tylenol) 650 mg PO Q4H PRN PRN Reason: Headache/Fever/Mild Pain (1-3) Last Admin: 06/30/18 13:05 Dose: 650 mg Acidophilus (Floranex) 1 tab PO DAILY [facility] Last Admin: 06/30/18 09:27 Dose: 1 tab Albuterol/Ipratropium (Duoneb) 3 ml NEB Q4H PRN PRN Reason: SOB &/or Wheezing Allopurinol (Zyloprim) 100 mg PO DAILY [facility] Last Admin: 07/01/18 09:13 Dose: 100 mg Atorvastatin Calcium (Lipitor) 10 mg PO HS [facility] Last Admin: 06/30/18 20:55 Dose: 10 mg Benzonatate (Tessalon) 100 mg PO TIDPRN PRN PRN Reason: Cough Last Admin: 06/28/18 08:08 Dose: 100 mg Cholecalciferol (Vitamin D3) 4,000 units PO DAILY [facility] Last Admin: 07/01/18 12:24 Dose: 4,000 units Digoxin (Lanoxin) 0.125 mg SLOW IVP DAILY [facility] Last Admin: 07/01/18 09:07 Dose: 0.125 mg Famotidine (Pepcid) 20 mg PO DAILY [facility] Last Admin: 07/01/18 09:13 Dose: 20 mg Cefepime HCl 2 gm/ Sodium (Chloride) 100 mls @ 200 mls/hr IVPB Q12HR [facility] Last Admin: 07/01/18 09:11 Dose: 100 mls Levofloxacin 750 mg/ Device 150 mls @ 100 mls/hr IVPB Q2D@2200 [facility] Last Admin: 06/29/18 21:26 Dose: 150 mls Diltiazem HCl 125 mg/ Sodium (Chloride) 125 mls @ 0 mls/hr IVPB INF [facility]; Protocol Last Admin: 07/01/18 02:35 Dose: 125 mls Melatonin (Melatonin) 9 mg PO HS [facility] Last Admin: 06/30/18 20:59 Dose: 9 mg Ondansetron HCl (Zofran) 4 mg IVP Q6H PRN PRN Reason: Nausea/Vomiting Last Admin: 06/26/18 20:56 Dose: 4 mg Pentoxifylline (Trental) 400 mg PO TID [facility] Last Admin: 07/01/18 09:12 Dose: 400 mg Pregabalin (Lyrica) 100 mg PO BID [facility] Last Admin: 07/01/18 09:33 Dose: 100 mg Propylene Glycol (Systane Opth Drop 15ml Bot) 1 drop EA EYE BID [facility] Last Admin: 07/01/18 12:24 Dose: 1 drop Sodium Chloride (Flush - Normal Saline) 10 ml IVF Q12HR [facility] Last Admin: 07/01/18 09:34 Dose: 10 ml Sodium Chloride (Flush - Normal Saline) 10 ml IVF PRN PRN PRN Reason: Saline Flush Tizanidine HCl (Zanaflex) 2 mg PO TID PRN PRN Reason: Muscle Spasm Last Admin: 06/24/18 17:02 Dose: 2 mg
--- NOTE | 2018-07-01 17:22 | EKG ---
Test Reason : Blood Pressure : / mmHG Vent. Rate : 091 BPM Atrial Rate : 092 BPM P-R Int : 000 ms QRS Dur : 124 ms QT Int : 352 ms P-R-T Axes : 000 -69 093 degrees QTc Int : 432 ms Atrial fibrillation with episodes of aberrant conduction Left axis deviation Inferior infarct , age undetermined Anterolateral infarct , age undetermined Marked ST abnormality, possible septal subendocardial injury Abnormal ECG When compared with ECG of 26-JUN-2018 22:42, (Unconfirmed) Wide QRS rhythm has replaced Atrial fibrillation Vent. rate has decreased BY [address] Cherrie SHEPHERD (3) on 07/01/2018 5:21:57 PM Referred By: RADHA Confirmed By:DR. Cherrie SHEPHERD
[2018-07-01] MEDS: Lactinex Tablet PO SCH (17:57)
[2018-07-01] MEDS ORDERED: Magnesium Sulfate 4 GM in Sodium Chloride 0.9% 250 ML 250 ML IVPB SCH (18:30)
--- NOTE | 2018-07-01 18:47 | PDOC.CTH ---
Cardiology Progress Note - Subjective Doing better. Breathing better. No more fevers since sunday. - Objective Vital Signs Temp Pulse Pulse Ox 07/01/18 18:31 96 07/01/18 16:00 97.7 F 07/01/18 09:07 84 07/01/18 08:00 97.6 F 98 Admit Weight 166 lb 10.711 oz Weight 154 lb 06/30/18 07/01/18 07/02/18 06:59 06:59 06:59 Intake Total 368.1 1080 678 Output Total 1680 1835 520 Balance -1311.9 -755 158 - Physical Examination General/Neuro: NAD Neck: no JVD present Lungs: CTA, unlabored respirations Heart: other: (Irregular) Abdomen: NT/ND Extremities: + edema B (trace) - Telemetry Telemetry Rhythm: Afib, Wide complex rhythm - Labs Result Diagrams: 07/01/18 07:17 07/01/18 07:17 Troponin/CKMB CK-MB (CK-2) 0.8 ng/mL (0-6.6) 06/23/18 15:04 - Assessment/Plan 1. Chronic afib in RVR now. 2. UTI 3. Staghorn calculus, obstructing 4. Recurrent fevers. PLAN; - Continue rate control with drip, will switch to IV amiodarone due to wide complex rhythm. - Will consider anticoagulation after surgery for his kidney stones. - Likely decompensation over the weekend was due to recrudescence of fevers making her afib go RVR and acute diastolic dysfunction, better now.
[2018-07-01] MEDS: Melatonin 3 MG TAB PO SCH (20:35)
[2018-07-01] MEDS: Atorvastatin Calcium 10 MG TAB PO SCH (20:41)
[2018-07-02 06:03] LABS: #Eosinphils 0.3 thou/uL (0.0-0.7); #Lymphocytes 1.1 thou/uL (1.20-3.40); #Monocytes 1.2 thou/uL (0.11-0.59); #Neutrophils 8.1 thou/uL (1.40-6.50); %Basophils 0.3 % (0.0-1.0); %Eosinophils 2.5 % (0.0-10.0); %Lymphocytes 10.4 % (21.0-51.0); %Neutrophils 75.9 % (42.0-75.0); Mean Corpuscular HGB CONC 32.4 g/dL (32.0-36.0); Mean Corpuscular Volume 92.7 fL (78.0-98.0); Mean Platelet Volume 10.3 fL (7.4-10.4); Platelet Count 143 thou/uL (130-400); RBC Distribution Width 14.1 % (11.5-14.5); White Blood Cell (WBC) Count 10.7 thou/uL (4.8-10.8)
[2018-07-02 06:21] LABS: Anion Gap 14 mmol/L (10-20); BUN (Urea Nitrogen) 35 mg/dL (9.8-20.1); Calc. Creatinine Clearance 42 mL/min (70-130); Calcium 9.5 mg/dL (7.8-10.44); Carbon Dioxide 22 mmol/L (23-31); Chloride 116 mmol/L (98-107); Estimated GFR-MDRD 43; Glucose 109 mg/dL (83-110); Potassium 3.8 mmol/L (3.5-5.1); Sodium 148 mmol/L (136-145)
[2018-07-02] MEDS: Diltiazem 125 MG in Sodium Chloride 0.9% 100 ML IVPB SCH (08:22)
[2018-07-02] MEDS: Polyethylene Glycol OPTH DROP 15 ML BOT EA EYE SCH (08:23)
[2018-07-02] MEDS: Cefepime 2 GM in Sodium Chloride 0.9% 100 ML IVPB SCH (08:26)
[2018-07-02] MEDS: Digoxin 0.5 MG/2 ML AMP SLOW IVP SCH (08:27)
[2018-07-02] MEDS: Allopurinol 100 MG TAB PO SCH ×2 (08:30→13:01)
[2018-07-02] MEDS: Famotidine 20 MG TAB PO SCH ×2 (08:30→13:03)
[2018-07-02] MEDS: Lactinex Tablet PO SCH (08:30)
--- NOTE | 2018-07-02 08:34 | PRG ---
DATE OF SERVICE: 07/02/2018 SUBJECTIVE: The patient resting, arousable. Denies significant discomfort. OBJECTIVE: VITAL SIGNS: Stable. She is afebrile. Heart rates in the 80s to 90s, on Cardizem drip. Afebrile for more than 48 hours. I's and O's 1600 out, of which approximately 800 mL from the left nephroureteral tube. ABDOMEN: Soft, nontender, and nondistended. Atkins catheter draining concentrated yellow urine. Nephrostomy tube adequately secured. PERTINENT LABORATORY DATA: White count decreased to 10, hemoglobin 15, and platelets 143. BUN 35 and creatinine 1.2. Repeat urine culture, blood culture negative. June 23, urine culture, Escherichia coli, pansensitive. IMPRESSION AND PLAN: Ms. Vieyra is a 78-year-old female with history of: 1. Atrial fibrillation. 2. History of coronary artery disease, followed by Dr. Griffith. 3. Prior anticoagulation with Eliquis on hold 2.5 mg due to atrial fibrillation and history of gout. 4. History of diarrhea on this admission, resolved with history of Cryptosporidium antigen positive. Per Infectious Disease, no further treatment necessary. 5. History of recurrent urinary tract infection, presented with Escherichia coli urinary tract infection with left staghorn calculus, status post nephroureteral tube. The patient has been cleared to proceed with Lasix renal scan today to assess for renal function of her left kidney. I did inform the patient's daughter regarding patient's progress and plan of action. If the patient has been cleared by Medical and Cardiology scheduled for cysto-internalization of her left ureteral stent tomorrow morning. Continue cefepime. Infectious Disease following. Currently, also on Levaquin for possible hospital-acquired pneumonia. Consider discontinuing one of the antibiotic regimens. From urologic perspective, the patient does not need to be double covered. Job ID: [id number] [facility]
--- NOTE | 2018-07-02 08:42 | PRG ---
DATE OF SERVICE: 07/02/2018 SUBJECTIVE: She is somewhat dysarthric. She says from having a dry mouth. Did not require BiPAP last night. OBJECTIVE: VITAL SIGNS: Temperature 97.8, pulse 91, blood pressure 132/64. Currently, diltiazem drip at 80 mg/hour. A 24-hour intake 1080, output 1835. Weight 155 pounds. HEENT: Unremarkable. NECK: No JVD. CHEST: Clear anteriorly. CARDIAC: S1 and S2. Irregularly irregular, but rate controlled. ABDOMEN: Soft. EXTREMITIES: No edema. LABORATORY DATA: White blood cell count 10.7, hematocrit 46, platelet count 143. Sodium 148, potassium 3.8, chloride 116, CO2 of 22, BUN 35, creatinine 1.2, glucose 109. ASSESSMENT: 1. Atrial fibrillation/flutter. 2. Status post acute respiratory failure related to congestive heart failure. PLAN: 1. EP study is expected at some point. 2. Await further input from Urology. Job ID: [id number]
[2018-07-02 12:57] VITALS: TEMP 98.3
[2018-07-02] MEDS ORDERED: Amiodarone 450 MG in Dextrose 5% in Water 250 ML IVPB SCH (13:00)
[2018-07-02] MEDS: Pregabalin 50 MG CAP PO SCH (13:02)
--- NOTE | 2018-07-02 13:55 | NM ---
NUCLEAR MEDICINE RENOGRAM WITH FUROSEMIDE: 07/02/2018 HISTORY: A 78-year-old female with left renal staghorn calculus. Evaluation of renal function for surgical pl anning purposes. TECHNIQUE: A Atkins catheter was in place prior to the procedure. Lasix 35 mg was injected IV 15 minutes prior to injection of MAG-3. IV injection of 8.2 millicuries of Tc99m MAG-3. Dynamic scintigraphy of the kidneys at 3-second intervals for the flow study up to 141 seconds, follo wed by 1-minute interval scintigraphic images up to 49 minutes. Counts were obtained over the kidneys and used to plot time versus activity curves. FINDINGS: On the scintigraphic images, there is delayed flow to the kidneys and delayed wash-out of activity fr om the bilateral renal parenchyma. The time-activity curves are abnormally flat, indicating abnormally slow washout of activity. Split renal function: 42% left 58% right Time of maximum: 5.4 minutes left 8.4 minutes right Time of half-maximum: Not available because of the very slow washout of activity. At 45 minutes, the right kidney retained 72% of its maximum peak activity, while the left kidney libia ined 78% of its maximum peak activity. IMPRESSION: Significant bilateral renal insufficiency. POS: HEATHER
--- NOTE | 2018-07-02 14:27 | PDOC.PN ---
- Subjective Encounter Start Date: 07/02/18 Encounter Start Time: 11:00 Pt seen for followup re: acute hypercapnic respiratory failure. Denies chest pain. - Objective Resuscitation Status - Order Detail: 06/25/18 16:53 Resuscitation Status Routine Resuscitation Status: FULL: Full Resuscitation Discussed with: Dr. Villalobos and pt's daughter Tierra EVANS Reviewed: Yes Vital Signs & Weight: Vital Signs (12 hours) Temp Pulse Resp BP Pulse Ox 07/02/18 11:00 98.3 F 07/02/18 09:45 99 22 H 140/85 94 L 07/02/18 08:27 84 07/02/18 07:57 97.5 F L 07/02/18 03:00 97.8 F Weight Admit Weight 166 lb 10.711 oz Weight 155 lb 3.287 oz Most Recent Monitor Data Heart Rate from ECG 95 NIBP 145/92 NIBP BP-Mean 109 Respiration from ECG 18 SpO2 96 I&O: 07/01/18 07/02/18 07/03/18 06:59 06:59 06:59 Intake Total 1080 1602 219 Output Total 1835 1355 767 Balance -755 247 -548 Result Diagrams: 07/02/18 05:56 07/02/18 05:56 EKG Reviewed by me: Yes (Tele: mikayla velasquez) Phys Exam - Physical Examination Constitutional: NAD HEENT: moist MMs Neck: supple Loki crackles Cardiovascular: irregular Gastrointestinal: soft Neurological: moves all 4 limbs Psychiatric: normal affect Dx/Plan (1) Acute hypercapnic respiratory failure Code(s): J96.02 - ACUTE RESPIRATORY FAILURE WITH HYPERCAPNIA Status: Acute Comment: Improving (2) Fluid overload Code(s): E87.70 - FLUID OVERLOAD, UNSPECIFIED Status: Acute Comment: Improving (3) Staghorn kidney stones Code(s): N20.0 - CALCULUS OF KIDNEY Status: Acute Comment: continue IV antibiotics as below (4) Afib Code(s): I48.91 - UNSPECIFIED ATRIAL FIBRILLATION Status: Chronic Comment: rate-controlled (5) HTN (hypertension) Code(s): I10 - ESSENTIAL (PRIMARY) HYPERTENSION Status: Chronic - Plan * . Review of Systems - Review of Systems Constitutional: weakness Respiratory: SOB with Excertion Cardiovascular: negative: chest pain, palpitations, orthopnea, paroxysmal nocturnal dyspnea, edema, light headedness - Medications/Allergies Allergies/Adverse Reactions: Allergies Allergy/AdvReac Type Severity Reaction Status Date / Time donepezil HCl [From Aricept] Allergy Verified 06/13/17 15:30 morphine Allergy Verified 06/13/17 15:30 Sulfa (Sulfonamide Allergy Verified 06/13/17 15:30 Antibiotics) sulfamethoxazole Allergy Verified 06/13/17 15:30 [From Bactrim] trimethoprim [From Bactrim] Allergy Verified 06/13/17 15:30 Medications: Current Medications Acetaminophen (Tylenol) 650 mg PO Q4H PRN PRN Reason: Headache/Fever/Mild Pain (1-3) Last Admin: 06/30/18 13:05 Dose: 650 mg Acidophilus (Floranex) 1 tab PO DAILY [facility] Last Admin: 07/02/18 08:30 Dose: Not Given Albuterol/Ipratropium (Duoneb) 3 ml NEB Q4H PRN PRN Reason: SOB &/or Wheezing Allopurinol (Zyloprim) 100 mg PO DAILY [facility] Last Admin: 07/02/18 13:01 Dose: 100 mg Atorvastatin Calcium (Lipitor) 10 mg PO HS [facility] Last Admin: 07/01/18 20:41 Dose: 10 mg Benzonatate (Tessalon) 100 mg PO TIDPRN PRN PRN Reason: Cough Last Admin: 06/28/18 08:08 Dose: 100 mg Cholecalciferol (Vitamin D3) 4,000 units PO DAILY [facility] Last Admin: 07/02/18 08:30 Dose: Not Given Digoxin (Lanoxin) 0.125 mg SLOW IVP DAILY [facility] Last Admin: 07/02/18 08:27 Dose: 0.125 mg Famotidine (Pepcid) 20 mg PO DAILY [facility] Last Admin: 07/02/18 13:03 Dose: 20 mg Cefepime HCl 2 gm/ Sodium (Chloride) 100 mls @ 200 mls/hr IVPB Q12HR [facility] Last Admin: 07/02/18 08:26 Dose: 100 mls Levofloxacin 750 mg/ Device 150 mls @ 100 mls/hr IVPB Q2D@2200 [facility] Last Admin: 07/01/18 21:02 Dose: 150 mls Amiodarone HCl 450 mg/ (Dextrose/Water) 259 mls @ 0 mls/hr IVPB INF [facility]; Protocol Last Admin: 07/02/18 13:40 Dose: 259 mls Melatonin (Melatonin) 9 mg PO HS [facility] Last Admin: 07/01/18 20:35 Dose: 9 mg Ondansetron HCl (Zofran) 4 mg IVP Q6H PRN PRN Reason: Nausea/Vomiting Last Admin: 06/26/18 20:56 Dose: 4 mg Pentoxifylline (Trental) 400 mg PO TID [facility] Last Admin: 07/02/18 08:30 Dose: Not Given Pregabalin (Lyrica) 100 mg PO BID [facility] Last Admin: 07/02/18 13:02 Dose: 100 mg Propylene Glycol (Systane Opth Drop 15ml Bot) 1 drop EA EYE BID [facility] Last Admin: 07/02/18 08:23 Dose: 1 drop Sodium Chloride (Flush - Normal Saline) 10 ml IVF Q12HR [facility] Last Admin: 07/02/18 08:31 Dose: 10 ml Sodium Chloride (Flush - Normal Saline) 10 ml IVF PRN PRN PRN Reason: Saline Flush Tizanidine HCl (Zanaflex) 2 mg PO TID PRN PRN Reason: Muscle Spasm Last Admin: 06/24/18 17:02 Dose: 2 mg
[2018-07-02 15:59] VITALS: BP 148/79
--- NOTE | 2018-07-02 16:21 | EKG ---
Test Reason : Blood Pressure : / mmHG Vent. Rate : 096 BPM Atrial Rate : 096 BPM P-R Int : 360 ms QRS Dur : 078 ms QT Int : 448 ms P-R-T Axes : 045 -42 117 degrees QTc Int : 565 ms Atrial Fib Left axis deviation ST depression, consider subendocardial injury or digitalis effect Nonspecific T wave abnormality Prolonged QT Abnormal ECG When compared with ECG of 01-JUL-2018 11:27, Sinus rhythm has replaced Atrial fibrillation Questionable change in QRS duration Criteria for Anterolateral infarct are no longer Present Criteria for Inferior infarct are no longer Present Confirmed by DR. Cherrie SHEPHERD ([id number]) on 07/02/2018 4:21:12 PM Referred By: RADHA Confirmed By:DR. Cherrie SHEPHERD
[2018-07-02] MEDS ORDERED: Calcium Chloride 1 GM/10 ML Abboject SYRINGE ONE (18:43)
[2018-07-02] MEDS ORDERED: EPINEPHrine 1 MG/ML AMP ONE (18:43)
[2018-07-02] MEDS ORDERED: EPINEPHrine 4 MG in Dextrose 5% in Water 250 ML IV SCH (18:45)
--- NOTE | 2018-07-02 20:04 | PRG ---
DATE OF SERVICE: 07/02/2018 Ho ponce was called to Ms. Vieyra, how was in the hospital, so decided to go in to the room, where she was receiving chest compressions at the time of my arrival. It was a VFib arrest. Apparently, the nurse was sitting next to her at the moment, conversing with her, and she suddenly went into VFib arrest. She started chest compressions immediately, and ho ponce was called. She received several doses of epinephrine push with several doses of calcium bicarbonate with no significant response. Every pulse check, she would be in coarse VFib or polymorphic VT. Magnesium was given several times as well. She eventually remained in coarse VFib, despite about 7 or 8 shocks delivered, so she was pronounced at 6:46 p.m. Critical care time 45 minutes. Job ID: [id number]
[2018-07-02] MEDS ORDERED: Dextrose 50% Abboject 50 ML SYRINGE ONE (20:13)
[2018-07-03] MEDS ORDERED: Furosemide 40 MG/4 ML VIAL ONE (12:51)
--- NOTE | 2018-07-04 00:48 | DIS ---
DATE OF ADMISSION: 06/23/2018 DATE OF DISCHARGE: 07/02/2018 SUMMARY PRIMARY CARE PROVIDER: Aide Do MD DIAGNOSES: 1. Ventricular fibrillation cardiac arrest. 2. Septic shock. 3. Urinary tract infection with Escherichia coli. 4. Acute kidney injury. 5. Diarrhea with positive Cryptosporidium antigen. 6. Atrial fibrillation with rapid ventricular response. 7. Staghorn calculus. CONSULTATIONS DURING THIS HOSPITALIZATION: 1. Urology, Shahnaz Key DO. 2. General Surgery, William Agrawal MD. 3. Infectious Diseases, Gilberto Escobedo MD. 4. Pulmonary Critical Care Medicine, Willy Lynch MD. 5. Cardiology, Jacky Griffith MD. HOSPITAL COURSE: Ms. Vieyra is a pleasant 78-year-old lady, who was admitted to [facility] on June 23, 2018, for urinary tract infection. Please refer to Dr. aBrton's history and physical note dated June 23, 2018, for further details. She was treated with intravenous antibiotics. She was seen by Urology Service. On June 25, 2018, she underwent left-sided nephroureteral catheter placement. The catheter was replaced on June 27, 2018. She also had atrial fibrillation with rapid ventricular response and needed Cardizem drip. On June 29, she was moved to critical care unit and treated with BiPAP. On July 01, she had a renal scan, which showed significant bilateral renal insufficiency. On July 02, hector ponce was called for VFib arrest. The patient was pronounced after multiple shocks, epinephrine and sodium bicarbonate pushes. Urine cultures grew Escherichia coli that was pansensitive. Clostridium difficile antigen and toxins were negative during this hospitalization. Final blood cultures were negative as well. Many thanks for allowing me to participate in your patient's care. Please feel free to contact me with any questions or concerns. Job ID: [id number]
--- NOTE | 2018-07-04 18:59 | EKG ---
Test Reason : STAT Blood Pressure : / mmHG Vent. Rate : 179 BPM Atrial Rate : 150 BPM P-R Int : 000 ms QRS Dur : 088 ms QT Int : 244 ms P-R-T Axes : 000 -40 150 degrees QTc Int : 421 ms Atrial fibrillation with rapid ventricular response Left axis deviation ST abnormality, possible digitalis effect Abnormal ECG Confirmed by ITZ DUMONT ([id number]) on 07/04/2018 6:58:50 PM Referred By: DARIUS Confirmed By:ITZ DUMONT
== END 2018-07-02 18:46 | disposition expired | DRG 871 ==
LOC: ERS 14:04 → T4-A 16:45 → 2NO 06-26 23:03 → IMCU/EMU 06-29 12:40 → CCU 06-29 13:42
PROVIDERS: ADMIT Internal Medicine; ATTEND Internal Medicine
PROC: BT1F1ZZ Fluoroscopy of Left Kidney, Ureter and Bladder using Low Osmolar Contrast (ICD-10-PCS; principal; 2018-06-25)
PROC: 0T9130Z Drainage of Left Kidney with Drainage Device, Percutaneous Approach (ICD-10-PCS; 2018-06-25)
PROC: BT1F1ZZ Fluoroscopy of Left Kidney, Ureter and Bladder using Low Osmolar Contrast (ICD-10-PCS; 2018-06-27)
PROC: 0T25X0Z Change Drainage Device in Kidney, External Approach (ICD-10-PCS; 2018-06-27)
PROC: 5A09457 Assistance with Respiratory Ventilation, 24-96 Consecutive Hours, Continuous Positive Airway Pressure (ICD-10-PCS; 2018-06-29)
PROC: 5A2204Z Restoration of Cardiac Rhythm, Single (ICD-10-PCS; 2018-07-02)
PROC: 3E033XZ Introduction of Vasopressor into Peripheral Vein, Percutaneous Approach (ICD-10-PCS; 2018-07-02)
PROC: 5A12012 Performance of Cardiac Output, Single, Manual (ICD-10-PCS; 2018-07-02)
DX: A41.51 Sepsis due to Escherichia coli [E. coli] (principal); J96.02 Acute respiratory failure with hypercapnia; R65.21 Severe sepsis with septic shock; N39.0 Urinary tract infection, site not specified; E87.2 Acidosis; N17.9 Acute kidney failure, unspecified; K50.90 Crohn's disease, unspecified, without complications; I50.32 Chronic diastolic (congestive) heart failure; K21.9 Gastro-esophageal reflux disease without esophagitis; I25.10 Atherosclerotic heart disease of native coronary artery without angina pectoris; E87.6 Hypokalemia; F32.9 Major depressive disorder, single episode, unspecified; E86.0 Dehydration; N20.0 Calculus of kidney; I49.01 Ventricular fibrillation; Z66 Do not resuscitate; I11.0 Hypertensive heart disease with heart failure; I73.9 Peripheral vascular disease, unspecified; K52.9 Noninfective gastroenteritis and colitis, unspecified; I48.2 Chronic atrial fibrillation; M54.9 Dorsalgia, unspecified; G89.29 Other chronic pain; E87.70 Fluid overload, unspecified; I46.9 Cardiac arrest, cause unspecified; Z99.3 Dependence on wheelchair; Z88.5 Allergy status to narcotic agent; Z88.2 Allergy status to sulfonamides
CPT/HCPCS: 36415; 50430; 50431; 50432; 50435; 51701; 71045; 74176; 75984; 78708; 80048; 80053; 81003; 81015; 82550; 82553; 82805; 83605; 83630; 83690; 83735; 83880; 84100; 84550; 85025; 85610; 85730; 87040; 87045; 87046; 87077; 87086; 87186; 87324; 87328; 87329; 87449; 87899; 93005; 93010; 93306; 94640; 94660; 96361; 96365; 96375; A4353; A4641; A9562; C1769; G8978-GP-CL; G8979-GP-CJ; J0131; J0171; J0692; J0696; J1160; J1650; J1885; J1940; J1956; J2185; J2250; J2405; J3010; J3475; J3480; J7050; J7070; J7620; S0028